=== PATIENT | male | born 1950 | race Caucasian/White ===

== ENCOUNTER 2016-12-21 13:00 | Inpatient (IN) | payer MEDICARE, BC ==
--- NOTE | ~2016-12-21 | IDS ---
Interim Discharge Summary [facility] [address] [place]. [address] NAME: JOSUE MRATINEZ : 54 STATUS : ADM IN PAT#: [id number] AGE: 66 ADM/REG DATE : 12/22/16 MR#: [id number] REPORT SERV DATE: 12/28/16 DICTATED BY: JAKOB JOY DATE: 12/28/16 REPORT STATUS : Draft TRANSCRIBED BY: MODL DATE: 12/28/16 ADMISSION DATE: 12/22/2016 DISCHARGE DATE: DIAGNOSES: 1. Systolic congestive heart failure, ejection fraction of 30%, status post AICD/fluid overload. 2. Encephalopathy. 3. Acute hypoxic hypercapnic respiratory failure. 4. Obstructive sleep apnea/obesity hypoventilation syndrome. 5. Type 2 diabetes. 6. Acute on chronic kidney disease. 7. Paroxysmal atrial fibrillation. CONSULTANTS: 1. Cardiology, Dr. Dash and Dr. Graham. 2. Nephrology, Dr. Hutson. 3. Attending Critical Care, Dr. Oleary. 4. Hospitalist, Dr. Adalberto Lopez and Dr. Josue Lanier. HOSPITAL COURSE: Please see H and P dictated by Dr. Adalberto Lopez. A 66-year-old male with past medical history of morbid obesity and cardiomyopathy with ejection fraction of 30%, status post AICD being followed by Dr. López and Dr. Rogers as an outpatient, also history of hypertension. Presented with orthopnea and shortness of breath and admitted to the Hospitalist Service, initially seen by Dr. Josue Lanier for volume overload and acute kidney injury. The patient at one point was found to have some bradycardia and also developed some acute hypoxic hypercapnic respiratory failure and was placed on BiPAP and also his Bumex drip was continued. The patient was transferred to ICU, had some encephalopathy secondary to hypercapnia. His AICD device was interrogated and found to be within normal limits. The patient was cared for by Critical Care as well as Cardiology and required dobutamine drip while in ICU. Also was seen by Nephrology for acute on chronic renal failure. It was discussed that his respiratory failure was most likely multifactorial secondary to his congestive heart failure as well as some underlying obesity hypoventilation syndrome/obstructive sleep apnea. The patient required a PICC line during that time. He was also continued on Coumadin and sotalol for paroxysmal atrial fibrillation. The patient was transferred out of the ICU. I attended to care for the patient the first time today on 12/28/2016. Currently, in no distress. He is alert and oriented. Has decreased shortness of breath, feeling a lot better. However, will consult Pulmonary to ascertain whether or not if the patient will require any nighttime BiPAP. The patient states that he does have a sleep study already set up as an outpatient, but he missed that appointment while being hospitalized in the hospital. He understands he needs to be rescheduled. We will await further recommendations from Pulmonary and also from Cardiology. The patient may require pulse dose diuresis. The patient will be followed by Dr. Anna Sandra who will attend to this patient's care starting on 12/29/2016. Interim Discharge Summary [address] [address] NAME: JOSUE MARTINEZ : 54 STATUS : ADM IN [facility]#: [id number] AGE: 66 ADM/REG DATE : 12/22/16 MR#: [id number] REPORT SERV DATE: 12/28/16 DICTATED BY: JAKOB JOY DATE: 12/28/16 REPORT STATUS : Draft TRANSCRIBED BY: MICHAEL DATE: 12/28/16 [facility]/MICHAEL Jakob Joy M.D. / [id number] CC: MD Daniel Stephenson M.D.
--- NOTE | ~2016-12-21 | DS ---
Discharge Summary [facility] [address] [place]. [address] NAME: JOSUE MARTINEZ : 54 STATUS : DIS IN PAT#: [id number] AGE: 66 ADM/REG DATE : 12/22/16 MR#: [id number] REPORT SERV DATE: 01/01/17 DICTATED BY: ANNA CRUZ DATE: 12/31/16 REPORT STATUS : Draft TRANSCRIBED BY: MODL DATE: 12/31/16 ADMISSION DATE: 12/22/2016 DISCHARGE DATE: 12/31/2016 DISCHARGE DIAGNOSES: 1. Acute on chronic congestive heart failure exacerbation with an ejection fraction of 30%. 2. Status post AICD. 3. Acute hypoxic hypercapnic respiratory failure, resolved. 4. Likely obstructive sleep apnea with obesity hypoventilation syndrome. 5. Obesity. 6. Acute on chronic kidney disease. 7. Diabetes type 2, insulin dependent. 8. Paroxysmal atrial fibrillation. CONSULTANTS ON THE CASE: 1. Cardiology Dr. Dash, Dr. Graham, and Dr. López. 2. Nephrology Dr. Hutson and Dr. Rico Wang. 3. Critical Care Dr. Oleayr. 4. Pulmonary Dr. Karley Rush. HOSPITAL COURSE: This is a very pleasant 66 years old gentleman that has a history of nonischemic cardiomyopathy and chronic systolic CHF, history of AICD, history of paroxysmal atrial fibrillation, obesity, likely obstructive sleep apnea, chronic kidney disease, hypertension, and diabetes admitted on 12/21/2016 with shortness of breath and CHF exacerbation as well as acute on chronic kidney disease. For further details, please see history and physical exam of Dr. John Glover. The patient has been followed by Dr. López and Dr. Rogers as an outpatient. He has been admitted with acute hypoxic hypercapnic respiratory failure, placed on a BiPAP, Bumex drip, and transferred initially to ICU since he developed some encephalopathy secondary to his hypercapnia. He had an interrogation of the AICD found to be normal. He has been seen in ICU by Cardiology as well as the Critical Care. He required some IV dobutamine drip as well as IV Bumex drip. His respiratory failure significantly improved. He has been continued on sotalol and Coumadin, transferred eventually out of the ICU, continued to be diuresed. His shortness of breath improved significantly. He has been followed by Dr. López on the floor as well as Dr. Wang and Dr. Karley Rush from Pulmonary. Eventually, the patient has been taken off the oxygen and did not require oxygen but obviously patient required outpatient sleep study. Most likely, he will need CPAP at night. His diuretic has been adjusted by the Pulmonology as well as Cardiology as well as by the Nephrology. He started to work with Physical Therapy, and recommendation for the patient was to go home with home health. On 12/31/2016, the patient has been ready for discharge. We will arrange an outpatient sleep study. We will arrange primary care provider followup appointment with Dr. Humphries in one week after discharge. Cardiology followup with Dr. López in one week after discharge. Nephrology followup with [facility] in one to two weeks after discharge. Pulmonary followup with Dr. Kraley Rush in four to six weeks after discharge. Followup at [facility] in one week after discharge. We will arrange home health and home PT. Discharge Summary [address] [address] NAME: JOSUE MARTINEZ : 54 STATUS : DIS IN PAT#: [id number] AGE: 66 ADM/REG DATE : 12/22/16 MR#: [id number] REPORT SERV DATE: 01/01/17 DICTATED BY: ANNA CRUZ DATE: 12/31/16 REPORT STATUS : Draft TRANSCRIBED BY: MICHAEL DATE: 12/31/16 MEDICATIONS AT DISCHARGE: Would include aspirin 81 mg p.o. daily, Bumex 1 mg with supper and 2 mg every morning, Celexa 10 mg p.o. daily, Colace 100 b.i.d. over the counter, Cymbalta 60 mg p.o. daily, Axid 150 at bedtime, Levemir 16 units subcutaneously twice a day, NovoLog sliding scale, Zaroxolyn 2.5 p.o. daily. His potassium has been discontinued per Nephrology recommendation. Also Lyrica 300 at bedtime, sotalol 40 twice a day, Jantoven 5 mg p.o. every morning. His ARB has been discontinued. Also, allopurinol 300 p.o. every morning, Pravachol 40 p.o. daily, Trulicity 0.75 subcu every seven days, and oxycodone 10/325 one tablet p.o. q.6 hours p.r.n. pain as well as albuterol MDI. The patient is going to be discharged home with home health and home physical therapy. This has been discussed extensively with the patient. All the questions have been answered in full. I have spent more than 30 minutes at discharging the patient Adrien Josue Mcgee, medication reconciliation, discharge summary, discharge instruction, and written prescriptions as well. Please fax a copy of history, physical exam, all the tests, procedure done during this hospitalization, consults, as well as discharge summaries to his primary care provider, Dr. Humphries as well as to his kick press setter Dr. López, registered nurse supervisor Dr. Karley Rush, and Dr. Wang, Nephrology. CF/MODL Anna Cruz M.D. / [id number] CC: Shirin Lutz M.D. C. Samuel Ledford, M.D. Pamela Sud, M.D. Claude Galphin, M.D.
--- NOTE | ~2016-12-21 | CN ---
Consultation Report [facility] [address] [place]. [address] NAME: JOSUE JURADO : 54 STATUS : ADM [place] PAT#: [id number] AGE: 66 ADM/REG DATE : 12/21/16 MR#: [id number] REPORT SERV DATE: 12/22/16 DICTATED BY: JOSUE CLEARY DATE: 12/21/16 REPORT STATUS : Draft TRANSCRIBED BY: MODL DATE: 12/21/16 CARDIOLOGY CONSULTATION DATE OF CONSULTATION: [facility] PHYSICIAN: Reji Lpóez M.D. REASON FOR CONSULTATION: Congestive heart failure, volume overload. HISTORY OF PRESENT ILLNESS: Mr. Jurado is a 66-year-old man with a history of nonischemic cardiomyopathy and chronic systolic congestive heart failure. He was just hospitalized here a month ago with congestive failure. He was discharged to home, and there is some question about whether some his medicines were changed, he is really not sure about them. He does report being compliant with volume restriction at home. He uses a salt substitute, although he brought it with him to the hospital, I wonder how much he is actually using. He reports having increased swelling involving the abdomen and legs with some increased shortness of breath. No chest pain, palpitations, lightheadedness, or syncope. He has no nausea or vomiting. No fevers or chills. REVIEW OF SYSTEMS: As per the history of present illness. Ten other systems are negative. PAST MEDICAL HISTORY: 1. Nonischemic cardiomyopathy. 2. Chronic systolic congestive heart failure. Echocardiogram 08/2016, with an EF of 35%. 3. History of ICD. 4. Sleep apnea. 5. Obesity. 6. COPD. 7. Chronic kidney disease. 8. Hypertension. 9. Diabetes. FAMILY HISTORY: Noncontributory. SOCIAL HISTORY: The patient is . No tobacco or alcohol is reported. ALLERGIES: NO KNOWN DRUG ALLERGIES. HOME MEDICATIONS: Allopurinol, aspirin 300 daily, Bumex 2 mg in the morning 1 in the evening p.o., citalopram 10 daily, Cymbalta 60 q.a.m., insulin as directed, Cozaar 25 daily, Zaroxolyn 2.5 p.r.n., Axid 150 q.h.s., potassium 20 daily, Pravachol 40 daily, Lyrica, Betapace 40 p.o. b.i.d. Jantoven as directed. Consultation Report [address] [address] NAME: JOSUE JURADO : 54 STATUS : ADM [place] PAT#: [id number] AGE: 66 ADM/REG DATE : 12/21/16 MR#: [id number] REPORT SERV DATE: 12/22/16 DICTATED BY: JOSUE CLEARY DATE: 12/21/16 REPORT STATUS : Draft TRANSCRIBED BY: MODL DATE: 12/21/16 PHYSICAL EXAMINATION: VITAL SIGNS: Heart rate 91, blood pressure 126/72. GENERAL: The patient is a pleasant obese white male, in no apparent distress. HEENT: Conjunctivae are anicteric, no xanthelasma, lips without cyanosis. NECK: Supple. Jugular venous pressures cannot be assessed. LUNGS: Decreased breath sounds in the bases. Possible rales. CARDIOVASCULAR: Regular rate and rhythm. Normal S1, S2. Very distant heart sounds. ABDOMEN: Soft, nontender, nondistended, with normal bowel sounds. No hepatomegaly. EXTREMITIES: +3 edema with chronic venous stasis changes. Pitting is noted. NEURO/PSYCH: Alert and oriented to person, place and time. No obvious neurologic deficits. Mood and affect normal. DATA: Creatinine is 1.56. GFR is 43. BNP is 503. Troponin negative. Chest x-ray with mild pulmonary edema. Minimal pleural fluid. IMPRESSION: 1. Acute on chronic systolic congestive heart failure. 2. Nonischemic cardiomyopathy. Left ventricular ejection fraction 35% by echo 08/2016. 3. Chronic obstructive pulmonary disease. 4. Chronic kidney disease. 5. History of ICD. 6. Atrial fibrillation, on sotalol and warfarin. 7. Chronic kidney disease. 8. Obesity. RECOMMENDATIONS: Mr. Jurado does come in with some moderate volume overload. He is in no extremis. His creatinine is up a little bit. I think aggressive diuresis to try to get him decongested and turn around will be the most important thing we can do for him, to try to get him back in the outpatient setting. Thank you for this consultation. Please contact me if you have any further questions. I will notify Dr. López of his admission. WO/MODL Josue Cleary M.D., Ph.D, F.A.C.C. / [id number] CC: Josue Lanier Jr, MD Consultation Report [address] [address] NAME: JOSUE JURADO : 54 STATUS : ADM [place] PAT#: [id number] AGE: 66 ADM/REG DATE : 12/21/16 MR#: [id number] REPORT SERV DATE: 12/22/16 DICTATED BY: JOSUE CLEARY DATE: 12/21/16 REPORT STATUS : Draft TRANSCRIBED BY: MICHAEL DATE: 12/21/16 Daniel Humphries M.D.
--- NOTE | ~2016-12-21 | CN ---
Consultation Report [facility] [address] [place]. [address] NAME: JOSUE JURADO : 54 STATUS : ADM IN PAT#: [id number] AGE: 66 ADM/REG DATE : 12/22/16 MR#: [id number] REPORT SERV DATE: 12/24/16 DICTATED BY: MANPREET RINALDI DATE: 12/24/16 REPORT STATUS : Draft TRANSCRIBED BY: MODL DATE: 12/24/16 NEPHROLOGY CONSULTATION. DATE OF CONSULTATION: 12/24/2016 REASON FOR CONSULT: Chronic kidney disease, acute kidney injury with volume overload. HISTORY OF PRESENT ILLNESS: Mr. Jurado is a 66-year-old white male who has a history of nonischemic cardiomyopathy. He was admitted to [facility] from 11/20 to 11/22 with volume overload. He has an AICD with an EF of 30%. He was readmitted on 12/21 with a 13- pound weight gain and is now in the CCU on BiPAP. Baseline creatinine has been 1.1 to 1.4 since 02/2014. Since admission, his creatinine has gone from 1.6 to 3.1. Over last 24 hours, he has only had 850 mL of urine output despite being started on a Bumex drip. PAST MEDICAL HISTORY: 1. Chronic kidney disease, baseline creatinine 1.1 to 1.4. 2. Nonischemic cardiomyopathy with AICD, EF 30% with RVSP 44 mmHg. 3. Insulin-dependent diabetes mellitus without proteinuria. 4. Paroxysmal atrial fibrillation, on chronic Coumadin. 5. Obstructive sleep apnea. 6. Hyperlipidemia, on statin. 7. Chronic pain. 8. Possible dementia. MEDICATIONS: Include Bumex drip at 1 mg/hour, allopurinol 300 mg daily, aspirin, Celexa, Cymbalta, Pepcid, Cozaar 25 mg daily, Zaroxolyn 5 mg daily, Percocet q.6, potassium 40 mg a.m. and 20 mg p.m., Pravachol 40 mg at bedtime, Lyrica 300 mg at bedtime, sotalol 40 mg b.i.d., Coumadin per pharmacy, Levemir 16 units b.i.d. FAMILY HISTORY: Cannot be obtained in the patient's current condition on BiPAP. SOCIAL HISTORY: Cannot be obtained in the patient's current condition on BiPAP. REVIEW OF SYSTEMS: Cannot be obtained in the patient's current condition on BiPAP. PHYSICAL EXAMINATION: VITAL SIGNS: Temperature 97.8, pulse 70, respirations 10, blood pressure 114/68, 100% saturation on 30% BiPAP. GENERAL: He is an ill-appearing white male, who is awake, alert, requiring BiPAP, does have mild dyspnea. HEENT: Sclerae without icterus. Conjunctivae not injected. Oropharynx not examined. JVD is 12-14 cm. HJR is positive. LUNGS: He has diffuse bilateral rhonchi and crackles with decreased breath sounds at the Consultation Report [address] [address] NAME: JOSUE JURADO : 54 STATUS : ADM IN [facility]#: [id number] AGE: 66 ADM/REG DATE : 12/22/16 MR#: [id number] REPORT SERV DATE: 12/24/16 DICTATED BY: MANPREET RINALDI DATE: 12/24/16 REPORT STATUS : Draft TRANSCRIBED BY: MICHAEL DATE: 12/24/16 bases. HEART: Rhythm is paced and regular, 2/6 murmur. No rub. ABDOMEN: Obese, soft, distended with mild ascites. Nontender to palpation. Bowel sounds present throughout. EXTREMITIES: He has 3 to 4+ pitting bilateral lower extremity edema to the hips. SKIN: Without rash. NEURO: Grossly nonfocal. Mood and affect are anxious. He has clear yellow urine in the Burgos catheter. : Deferred. MUSCULOSKELETAL: Shows no active tenosynovitis or gout. LABORATORY DATA: Sodium 137, potassium 5.7, bicarb 31, BUN 82, creatinine 3.1. ALT 158, AST 97, magnesium 2.8, calcium 8.7, phosphorus 5.4, albumin 3.5, GFR 20 mL/minute. BNP 630. A1c 8%. White count 8100 without eosinophilia. INR 2.1. Hemoglobin 11.7, platelets 168,000. UA in 11/2016 showed no proteinuria. Chest x-ray shows bilateral edema and effusions. Ultrasound showed no lower extremity DVT. CT on admission without contrast showed pleural effusions, ascites, body wall edema, but no hydronephrosis. ASSESSMENT AND PLAN: Mr. Jurado has chronic kidney disease with baseline creatinine 1.1 to 1.4, who has now developed nonoliguric acute kidney injury in the setting of volume overload, hyperkalemia, elevated LFTs, hypotension. He has nonischemic cardiomyopathy with AICD in place and EF 30%. Likely, he has developed decompensated cardiorenal syndrome and may have a component of ATN from renal hypoperfusion due to low blood pressure and systolic congestive heart failure. Hold ARB and potassium supplement. We will continue Bumex drip, but increase the dose and add a dose of Diuril IV today. Need to discuss with family regarding expectations. If he fails medical management, may need to consider a trial of CRRT for volume removal. We will follow closely with you. Appreciate consult. Watch labs. Provide supportive care. Hold statin with elevated LFTs. NC/MODL Manpreet Rinaldi M.D. / [id number] CC: Consultation Report [address] [place]. [address] NAME: JOSUE JURADO : 54 STATUS : ADM IN PAT#: [id number] AGE: 66 ADM/REG DATE : 12/22/16 MR#: [id number] REPORT SERV DATE: 12/24/16 DICTATED BY: MANPREET RINALDI DATE: 12/24/16 REPORT STATUS : Draft TRANSCRIBED BY: MODL DATE: 12/24/16 Josue Lanier Jr, MD
--- NOTE | ~2016-12-21 | HP ---
History And Physical [address] [place]. [address] NAME: JOSUE MARTINEZ : 54 STATUS : ADM [place] PAT#: [id number] AGE: 66 ADM/REG DATE : 12/21/16 MR#: [id number] REPORT SERV DATE: 12/21/16 DICTATED BY: NICKY FAIR DATE: 12/21/16 REPORT STATUS : Draft TRANSCRIBED BY: MODL DATE: 12/21/16 DATE OF ADMISSION: 12/21/2016 Primary care doctor appears to be Dr. Aiken. He sees Dr. López for his cardiology needs. CHIEF COMPLAINT: Shortness of breath. Orthopnea. HISTORY OF PRESENT ILLNESS: This is a 66-year-old morbidly obese male, known history of nonischemic cardiomyopathy, LVEF 30%, AICD placement done by Dr. Rogers, sees Dr. López for his cardiology needs, history of hypertension, depression, chronic pain, left lower extremity DVT, taken off Coumadin in the past, history of MELINDA to OHBS, not on CPAP. He did have a recommended polysomnography test planned last admission and actually was discharged on 11/22/2016. Noted a recent history of Alzheimer's. Noted history of left knee total joint surgery, abdominal abscess drainage in the past and diabetes, insulin dependent with reduced requirements given weight loss. The patient was discharged in mid November for likely volume overload, acute decompensated heart failure. Discharged on Bumex 2 p.o. b.i.d. as well as metolazone p.r.n.; carvedilol; and losartan. The patient states he has had about 13 pounds weight gain in the last 10 days. I did call Dr. López's office who instructed him to come to the emergency department. BNP is 503. Near upon discharge last admission, he was around 300 BNP. Chest x-ray with bilateral alveolar infiltration; however, the patient's pulse ox is okay around 97% on room air. The patient is sitting up fully upright. Endorses positive orthopnea. No PND. Increased swelling in his lower extremities. No fevers. Positive chills. Positive nausea. Positive nonbilious emesis recently. No diarrhea. Only some mild left-sided pleuritic chest pain is reproducible with musculoskeletal palpation though. Positive productive cough the last few days. Positive wheezing. No personal history of smoking with significant secondhand smoke exposure. REVIEW OF SYSTEMS: Done, see HPI. Otherwise, negative. PAST MEDICAL HISTORY: See above. PAST SURGICAL HISTORY: See above. ALLERGIES: APPARENTLY NO KNOWN DRUG ALLERGIES. HOME MEDICATIONS: See MAR. We will continue what is relevant. FAMILY HISTORY: Hypertension in at least one parent. SOCIAL HISTORY: No alcohol, no drug use. . Apparently lives with the in poor health. He is a [employer] as a [facility] [employer]. He did have [employer] [place] History And Physical [address] [address] NAME: JOSUE MARTINEZ : 54 STATUS : ADM [place] PAT#: [id number] AGE: 66 ADM/REG DATE : 12/21/16 MR#: [id number] REPORT SERV DATE: 12/21/16 DICTATED BY: NICKY FAIR DATE: 12/21/16 REPORT STATUS : Draft TRANSCRIBED BY: MODMariluz DATE: 12/21/16 exposure. Lives in [facility]. No current smoking use although significant secondhand smoking exposure in the past. OBJECTIVE: VITAL SIGNS: They currently are 126/72, 97.8 temperature, 91 pulse, 16 respirations, only 97% on room air. GENERAL: He is sitting totally upright. No acute distress. HEENT: PERRLA. No scleral icterus. CARDIOVASCULAR: Regular rate and rhythm. No murmur auscultated. RESPIRATORY: Bibasilar rales. Some mild actual expiratory wheezing bilaterally as well for mid lung arana. ABDOMEN: Obese nontender. Nondistended. Positive bowel sounds. EXTREMITIES: A 1 to 2+ pitting edema bilaterally. NEUROLOGIC: A and O x4/4. GCS of 15. LABORATORY DATA: White count 8.4, hemoglobin 12.2, and 186,000 platelets. Troponin negative. 4.3 potassium, 34 bicarb, 1.65 creatinine, 51 BUN, 138 sodium, 193 sugar, BNP 503; near upon discharge last admission, he was about 300 BNP. Chest x-ray, see above. Also has an EKG that has a paced rhythm, appears to be V-paced. ASSESSMENT AND PLAN: 1. Volume overload. 2. Supratherapeutic INR. Interestingly was not discharged from last discharge summary on Coumadin but yet is taking home Coumadin. INR is 5.7, suspected history of left lower extremity DVT. 3. Likely acute on chronic systolic-diastolic heart failure, LVEF near 30%, nonischemic in origin. 4. Acute kidney injury, likely on 81. We will go ahead and admit this patient under observation. He is fairly decent on his vitals, it is 97% on room air, sitting totally upright. Does have a doubling in his BNP with certain bilateral alveolar infiltration. As a result, the patient has productive cough with significant secondhand smoking exposure may have clinical COPD and we will place on Levaquin 3/3 GOLD criteria, Solu- Medrol. Placed on Bumex 2 IV t.i.d. as the patient gets 2 p.o. b.i.d. at home. We will also go ahead and give him 5 of vitamin K, ultrasound his lower extremities for any persistence of clot. We will also ask for Dr. López to evaluate the patient as he was instructed to come to the emergency department from the export freight specialist's office. We will also get a CT abdomen and pelvis regarding his HORACIO to rule out any nephrolithiasis. Likely Dr. Lanier will follow this patient in the CVU as the patient is going for observation. Will Physical therapy evaluate the patient's needs significant needs. 5. See rest of my orders. All questions were answered. It took well over 60 minutes to do. Reference [employer] and [employer]. WST/MODL Nicky Wise History And Physical [address] [address] NAME: JOSUE MARTINEZ : 54 STATUS : ADM [place] PAT#: [id number] AGE: 66 ADM/REG DATE : 12/21/16 MR#: [id number] REPORT SERV DATE: 12/21/16 DICTATED BY: NICKY FAIR DATE: 12/21/16 REPORT STATUS : Draft TRANSCRIBED BY: MODL DATE: 12/21/16 DO John / [id number] CC: Josue Lanier Jr, MD Raphael Lanade, M.D.
[2016-12-21 12:44] LABS: BASOPHILS 0.4 %; BASOPHILS ABSOLUTE 0.03 10/3/uL (0.0-0.16); EOSINOPHILS 2.8 %; EOSINOPHILS ABSOLUTE 0.23 10/3/uL (0.0-0.53); HEMATOCRIT 38.5 % (40.0-51.0); HEMOGLOBIN 12.2 g/dL (13.6-17.8); IMMATURE GRANULOCYTES 0.6 %; IMMATURE GRANULOCYTES ABSOLUTE 0.05 10/3/uL (0.0-0.11); LYMPHOCYTES 13.4 %; LYMPHOCYTES ABSOLUTE 1.12 10/3/uL (0.67-4.30); MANUAL DIFF NO %; MEAN CORPUS HGB CONC 31.7 g/dL (32.0-36.0); MEAN CORPUSCULAR HEMOGLOB 25.5 pg (26.0-34.0); MEAN CORPUSCULAR VOLUME 80.4 fL (80-100); MEAN PLATELET VOLUME 11.2 fL (9.2-13.0); MONOCYTES 12.8 %; MONOCYTES ABSOLUTE 1.07 10/3/uL (0.21-1.20); NEUTROPHILS ABSOLUTE 5.85 10/3/uL (2.02-8.40); PLATELET COUNT 186 10/3/uL (150-400); RBC DISTRIBUTION WIDTH 17.1 % (12.0-16.0); RED CELL COUNT 4.79 10/6/uL (4.7-6.1); WHITE BLOOD CELLS 8.4 10/3/uL (4.5-10.5)
[2016-12-21 12:51] LABS: PARTIAL THROMBO TIME 51.5 SEC (22.5-37.2)
[2016-12-21 12:52] LABS: INTERNATIONAL NORMAL RATI 5.7 UNITS (-); PROTIME (NOT ORD) 50.7 SEC (12.0-14.5)
[2016-12-21 13:00] LABS: CALCIUM, SERUM 8.9 MG/DL (8.5-10.4); CHLORIDE, SERUM 95 MMOL/L (96-112); CO2 (CARBON DIOXIDE) 34 MMOL/L (24-34); GLUCOSE, SERUM 153 MG/DL (60-99); POTASSIUM, SERUM 4.3 MMOL/L (3.5-5.3); SODIUM, SERUM 138 MMOL/L (135-148); TROPONIN I 0.04 NG/ML (<0.05)
[~2016-12-21 13:00] MED LIST: AMB10 PO; AMB5 PO; AMBIEN; ASAB PO; AXID150 MG PO; B121000P IM; BIST PO; BLACK CHERRY PO; BUM1 PO; BUM2 PO; C5 PO; CALC/MAG/ZINC PO; CALCIUM/MAG/ZINC PO; CELEXA10 PO; CICLOPIROX 8% EX; CINNAMON; CINNAMON PO; COLON HEALTH; COQ-1010 MG OR; COREG3 PO; COREG6 PO; COREGCR10 PO; CORTISPORIN0.5 % TOP; COZ25; CYANO1000T PO; CYMBALTA60 PO; DEMA100 PO; DEMA20 PO; DIGITEK0.125 MG PO; DIL4TAB PO; FIBERCON PO; FISH-EPA1000 MG PO; FLOMAX4 PO; FOLTANX PO; GLUCOPHAGE1000 MG PO; GLUCOSAMIN PO; GLUCOSAMINE PO; HALF81; HALF81 PO; HORMONE INJECTION IM; INVOKANA100 MG PO; JANTOVEN7.5 MG PO; KDUR20 PO; KLOR-CON 1010 MEQ PO; KLOR-CON M2020 MEQ PO; L40 PO; L80 PO; LAN125 PO; LANTUS SC; LANTUSCART SC; LEVEMIR SC; LIMBREL500 MG PO; LIPITOR40 PO; LORCET PLUS1 TAB PO; LYRICA200 MG PO; LYRICA300 MG PO; MAGNESIUM PO; MAGONATE PO; MAGOX4 PO; METANX PO; MIRALAXPKT PO; MULTIPLE VIT PO; MULTIVIT/MIN PO; NEUR600 PO; NEURONTIN; NIZATIDINE 150 MG PO; NORV10 PO; NOVOLOG SC; OMNICEF300 PO; P20 PO; PCET PO; PERCOCET1 TA4 PO; PLAVIX PO; POTASSIUM; PRAVACHOL40 MG; PRAVACHOL40 MG PO; PRAVASTATIN; PRILO PO; PRILOSEC; PRIN5 PO; PROAMAT5 PO; SPIRO25 PO; SYMBICORT 160/41 INH INH; TRULICITY SC; TRULICITY0.75 MG/0. SQ; VENTOLIN HFA INH; VICTOZA; VICTOZA SQ; VITAMIN B-121000 MC1 SL; VITAMIN D1000 UNI1 PO; VITAMIN D31000 UNIT PO; XOPENEX HFA INH; Z10 PO; Z300 PO; Z5 PO; ZAROX2.5B PO; ZESTRIL2.5 MG PO; [UNRECOGNIZED DRUG - OTHER]; [UNRECOGNIZED DRUG - OTHER] PO; [UNRECOGNIZED DRUG - OTHER] PO
[2016-12-21 13:04] LABS: BUN (BLOOD UREA NITROGEN) 51 MG/DL (6-23); CREATININE 1.65 MG/DL (0.70-1.30); GFR AFRICAN AMERICAN 50 ML/MIN (>=60); GFR NON AFRICAN AMERICAN 43 ML/MIN (>=60)
[2016-12-21 13:05] LABS: CHEST PAIN PROFILE TAT 0 Hrs 33 Mins
[2016-12-21] MEDS ORDERED: BETAPACE80 PO (13:17)
[2016-12-21] MEDS ORDERED: COZ25 PO (13:18)
[2016-12-21] MEDS ORDERED: C5 PO (13:18)
[2016-12-21] MEDS ORDERED: LYRICA100 MG PO (13:19)
[2016-12-21] MEDS ORDERED: BUM2 PO (13:20)
[2016-12-21] MEDS ORDERED: BUM1 PO (13:20)
[2016-12-21] MEDS ORDERED: LYRICA300 MG PO (13:20)
[2016-12-21] MEDS ORDERED: CELEXA10 PO (13:20)
[2016-12-21] MEDS ORDERED: CYMBALTA60 PO (13:21)
[2016-12-21] MEDS ORDERED: Z300 PO (13:21)
[2016-12-21] MEDS ORDERED: AXID150 MG PO (13:22)
[2016-12-21] MEDS ORDERED: ZAROX2.5B PO (13:22)
[2016-12-21] MEDS ORDERED: KLOR-CON M2020 MEQ PO ×2 (13:23)
[2016-12-21] MEDS ORDERED: PRAVACHOL40 MG PO (13:23)
[2016-12-21] MEDS ORDERED: TRULICITY0.75 MG/0. SQ (13:24)
[2016-12-21] MEDS ORDERED: ASAB PO (13:24)
[2016-12-21] MEDS ORDERED: NOVOLOG SC (13:25)
[2016-12-21] MEDS ORDERED: LEVEMIR SC (13:25)
[2016-12-21] MEDS ORDERED: JANTOVEN3 MG PO (13:33)
[2016-12-22 05:37] LABS: BASOPHILS 0.2 %; BASOPHILS ABSOLUTE 0.01 10/3/uL (0.0-0.16); EOSINOPHILS 0 %; HEMATOCRIT 36.4 % (40.0-51.0); HEMOGLOBIN 11.7 g/dL (13.6-17.8); IMMATURE GRANULOCYTES 0.4 %; IMMATURE GRANULOCYTES ABSOLUTE 0.02 10/3/uL (0.0-0.11); LYMPHOCYTES 10.9 %; LYMPHOCYTES ABSOLUTE 0.54 10/3/uL (0.67-4.30); MEAN CORPUS HGB CONC 32.1 g/dL (32.0-36.0); MEAN CORPUSCULAR HEMOGLOB 25.7 pg (26.0-34.0); MEAN CORPUSCULAR VOLUME 79.8 fL (80-100); MEAN PLATELET VOLUME 11.4 fL (9.2-13.0); MONOCYTES 1.2 %; MONOCYTES ABSOLUTE 0.06 10/3/uL (0.21-1.20); NEUTROPHILS 87.3 %; NEUTROPHILS ABSOLUTE 4.33 10/3/uL (2.02-8.40); PLATELET COUNT 175 10/3/uL (150-400); RBC DISTRIBUTION WIDTH 17.2 % (12.0-16.0); RED CELL COUNT 4.56 10/6/uL (4.7-6.1)
[2016-12-22 05:43] LABS: MANUAL DIFF NO %
[2016-12-22 06:12] LABS: A/G RATIO 0.9 (0.7-1.9); ALBUMIN 3.2 G/DL (3.5-5.0); BUN (BLOOD UREA NITROGEN) 52 MG/DL (6-23); CALCIUM, SERUM 8.7 MG/DL (8.5-10.4); CHLORIDE, SERUM 93 MMOL/L (96-112); CO2 (CARBON DIOXIDE) 33 MMOL/L (24-34); CREATININE 1.69 MG/DL (0.70-1.30); GFR AFRICAN AMERICAN 49 ML/MIN (>=60); GFR NON AFRICAN AMERICAN 42 ML/MIN (>=60); GLOBULIN 3.6 G/DL (2.5-4.1); SGOT(AST) 175 U/L (5-40); SGPT(ALT) 203 U/L (5-65); SODIUM, SERUM 138 MMOL/L (135-148); TOTAL BILIRUBIN 0.8 MG/DL (0-1.2); TOTAL PROTEIN 6.8 G/DL (6.0-8.5); TROPONIN I 0.03 NG/ML (<0.05)
[2016-12-22 06:14] LABS: ALKALINE PHOSPHATASE 136 U/L (45-117); GLUCOSE, SERUM 232 MG/DL (60-99); PHOSPHORUS, SERUM 3.6 MG/DL (2.5-4.5)
[2016-12-22 06:56] LABS: B NATRIURETIC PEPTIDE (BNP) 627.3 PG/ML (< 100.0)
[2016-12-22 07:00] LABS: PROCALCITONIN 0.05 ng/mL (<0.5)
[2016-12-22] MEDS ORDERED: PERCOCET 10/3251 TAB PO (10:01)
[2016-12-23 05:20] LABS: BASOPHILS 0 %; EOSINOPHILS 0 %; HEMATOCRIT 36.9 % (40.0-51.0); HEMOGLOBIN 11.7 g/dL (13.6-17.8); IMMATURE GRANULOCYTES 0.3 %; IMMATURE GRANULOCYTES ABSOLUTE 0.02 10/3/uL (0.0-0.11); INTERNATIONAL NORMAL RATI 2.2 UNITS (-); LYMPHOCYTES 8.7 %; LYMPHOCYTES ABSOLUTE 0.61 10/3/uL (0.67-4.30); MEAN CORPUS HGB CONC 31.7 g/dL (32.0-36.0); MEAN CORPUSCULAR HEMOGLOB 25.5 pg (26.0-34.0); MEAN CORPUSCULAR VOLUME 80.4 fL (80-100); MEAN PLATELET VOLUME 11.2 fL (9.2-13.0); MONOCYTES 8.5 %; NEUTROPHILS 82.5 %; PLATELET COUNT 193 10/3/uL (150-400); RBC DISTRIBUTION WIDTH 17.4 % (12.0-16.0); RED CELL COUNT 4.59 10/6/uL (4.7-6.1)
[2016-12-23 05:22] LABS: MANUAL DIFF NO %; PROTIME (NOT ORD) 23.9 SEC (12.0-14.5)
[2016-12-23 05:28] LABS: CALCIUM, SERUM 8.8 MG/DL (8.5-10.4); CHLORIDE, SERUM 96 MMOL/L (96-112); CO2 (CARBON DIOXIDE) 31 MMOL/L (24-34); CREATININE 2.12 MG/DL (0.70-1.30); GFR AFRICAN AMERICAN 37 ML/MIN (>=60); GFR NON AFRICAN AMERICAN 32 ML/MIN (>=60); PHOSPHORUS, SERUM 4.2 MG/DL (2.5-4.5); SODIUM, SERUM 136 MMOL/L (135-148)
[2016-12-23 05:33] LABS: BUN (BLOOD UREA NITROGEN) 65 MG/DL (6-23); GLUCOSE, SERUM 177 MG/DL (60-99); POTASSIUM, SERUM 5.5 MMOL/L (3.5-5.3)
[2016-12-23 14:07] LABS: ALLENS TEST Pos; BE (BASE EXCESS) 2.9 MEQ/L (0 +/- 2.5); CARBOXYHEMOGLOBIN 1.8 % (0-3); HCO3 (ACTUAL BICARBONATE) 31.1 MEQ/L (23-27); HEMOBLOGIN CONTENT 12.8 G/DL (14-18); INSTRUMENT SERIAL # 8087; METHEMOGLOBIN 0.3 % (0-3); O2 CONTENT 14.5 VOL% (18-24); PCO2 (CO2 TENSION) 65 MMHG (35-45); PO2 (O2 TENSION) 52 MMHG (79-93); SAMPLE Arterial
[2016-12-23 18:06] LABS: BE (BASE EXCESS) 4.8 MEQ/L (0 +/- 2.5); BIPAP 15/5 cm.H2O; CARBOXYHEMOGLOBIN 0.6 % (0-3); HCO3 (ACTUAL BICARBONATE) 31.4 MEQ/L (23-27); INSTRUMENT SERIAL # 35151; METHEMOGLOBIN 0.5 % (0-3); O2 CONTENT 17.7 VOL% (18-24); OPERATOR ID 35785; PCO2 (CO2 TENSION) 55 MMHG (35-45); PO2 (O2 TENSION) 99 MMHG (79-93); SAMPLE Arterial; pH 7.37 (7.37-7.43)
[2016-12-23 18:07] LABS: ALLENS TEST Pos
[2016-12-23 19:47] LABS: BASOPHILS 0 %; EOSINOPHILS 0 %; HEMATOCRIT 40.2 % (40.0-51.0); HEMOGLOBIN 12.3 g/dL (13.6-17.8); IMMATURE GRANULOCYTES 0.1 %; IMMATURE GRANULOCYTES ABSOLUTE 0.01 10/3/uL (0.0-0.11); LYMPHOCYTES 17.9 %; MEAN CORPUS HGB CONC 30.6 g/dL (32.0-36.0); MEAN CORPUSCULAR VOLUME 81.7 fL (80-100); MEAN PLATELET VOLUME 11.1 fL (9.2-13.0); MONOCYTES 2.4 %; NEUTROPHILS 79.6 %; NEUTROPHILS ABSOLUTE 6.69 10/3/uL (2.02-8.40); NUCLEATED RED BLOOD CELLS 0.7 /100WBC (0-0); PLATELET COUNT 200 10/3/uL (150-400); RBC DISTRIBUTION WIDTH 17.7 % (12.0-16.0); RED CELL COUNT 4.92 10/6/uL (4.7-6.1); WHITE BLOOD CELLS 8.4 10/3/uL (4.5-10.5)
[2016-12-23 19:48] LABS: MANUAL DIFF NO %
[2016-12-23 19:55] LABS: INTERNATIONAL NORMAL RATI 2.1 UNITS (-); PARTIAL THROMBO TIME 37.4 SEC (22.5-37.2); PROTIME (NOT ORD) 23.7 SEC (12.0-14.5)
[2016-12-23 19:59] LABS: A/G RATIO 0.9 (0.7-1.9); ALBUMIN 3.5 G/DL (3.5-5.0); CALCIUM, SERUM 8.7 MG/DL (8.5-10.4); CHLORIDE, SERUM 96 MMOL/L (96-112); CO2 (CARBON DIOXIDE) 32 MMOL/L (24-34); GLOBULIN 3.8 G/DL (2.5-4.1); POTASSIUM, SERUM 6.1 MMOL/L (3.5-5.3); SGOT(AST) 97 U/L (5-40); SGPT(ALT) 158 U/L (5-65); SODIUM, SERUM 135 MMOL/L (135-148); TOTAL BILIRUBIN 0.9 MG/DL (0-1.2); TOTAL PROTEIN 7.3 G/DL (6.0-8.5); TROPONIN I 0.04 NG/ML (<0.05)
[2016-12-23 20:00] LABS: ALKALINE PHOSPHATASE 120 U/L (45-117); BUN (BLOOD UREA NITROGEN) 74 MG/DL (6-23); CK-MB 1.5 NG/ML; CPK 37 U/L (0-200); CREATININE 2.91 MG/DL (0.70-1.30); GFR AFRICAN AMERICAN 25 ML/MIN (>=60); GFR NON AFRICAN AMERICAN 22 ML/MIN (>=60); GLUCOSE, SERUM 125 MG/DL (60-99); PHOSPHORUS, SERUM 5.6 MG/DL (2.5-4.5)
[2016-12-23 21:47] LABS: BIPAP 18/5 cm.H2O; CARBOXYHEMOGLOBIN 0.5 % (0-3); HEMOBLOGIN CONTENT 12.9 G/DL (14-18); INSTRUMENT SERIAL # 35151; METHEMOGLOBIN 0.6 % (0-3); O2 CONTENT 18.4 VOL% (18-24); PCO2 (CO2 TENSION) 57 MMHG (35-45); PO2 (O2 TENSION) 244 MMHG (79-93); SAMPLE Arterial; pH 7.35 (7.37-7.43)
[2016-12-23 21:48] LABS: ALLENS TEST Pos
[2016-12-24 05:22] LABS: INTERNATIONAL NORMAL RATI 2.1 UNITS (-); PROTIME (NOT ORD) 23.6 SEC (12.0-14.5)
[2016-12-24 07:16] LABS: BASOPHILS 0 %; EOSINOPHILS 0.1 %; EOSINOPHILS ABSOLUTE 0.01 10/3/uL (0.0-0.53); HEMATOCRIT 37.9 % (40.0-51.0); HEMOGLOBIN 11.7 g/dL (13.6-17.8); IMMATURE GRANULOCYTES 0.4 %; IMMATURE GRANULOCYTES ABSOLUTE 0.03 10/3/uL (0.0-0.11); LYMPHOCYTES 18.8 %; LYMPHOCYTES ABSOLUTE 1.53 10/3/uL (0.67-4.30); MEAN CORPUS HGB CONC 30.9 g/dL (32.0-36.0); MEAN CORPUSCULAR HEMOGLOB 24.8 pg (26.0-34.0); MEAN CORPUSCULAR VOLUME 80.3 fL (80-100); MEAN PLATELET VOLUME 10.9 fL (9.2-13.0); MONOCYTES ABSOLUTE 0.49 10/3/uL (0.21-1.20); NEUTROPHILS 74.7 %; NEUTROPHILS ABSOLUTE 6.08 10/3/uL (2.02-8.40); PLATELET COUNT 168 10/3/uL (150-400); RBC DISTRIBUTION WIDTH 17.6 % (12.0-16.0); RED CELL COUNT 4.72 10/6/uL (4.7-6.1); WHITE BLOOD CELLS 8.1 10/3/uL (4.5-10.5)
[2016-12-24 07:18] LABS: MANUAL DIFF NO %
[2016-12-24 07:32] LABS: CHLORIDE, SERUM 96 MMOL/L (96-112); POTASSIUM, SERUM 5.7 MMOL/L (3.5-5.3); SODIUM, SERUM 137 MMOL/L (135-148)
[2016-12-24 07:51] LABS: CALCIUM, SERUM 8.7 MG/DL (8.5-10.4); CO2 (CARBON DIOXIDE) 31 MMOL/L (24-34); CREATININE 3.12 MG/DL (0.70-1.30); GFR AFRICAN AMERICAN 23 ML/MIN (>=60); GFR NON AFRICAN AMERICAN 20 ML/MIN (>=60); GLUCOSE, SERUM 115 MG/DL (60-99); PHOSPHORUS, SERUM 5.4 MG/DL (2.5-4.5)
[2016-12-24 07:52] LABS: BUN (BLOOD UREA NITROGEN) 82 MG/DL (6-23)
[2016-12-24 09:11] LABS: TOTAL BILIRUBIN 0.7 MG/DL (0-1.2)
[2016-12-24 09:22] LABS: ALBUMIN 3.2 G/DL (3.5-5.0); ALKALINE PHOSPHATASE 110 U/L (45-117); DIRECT BILIRUBIN 0.4 MG/DL (0.0-0.4); INDIRECT BILIRUBIN(NOT ORDER) 0.3 MG/DL (0.1-0.9); SGOT(AST) 100 U/L (5-40); SGPT(ALT) 145 U/L (5-65); TOTAL PROTEIN 6.6 G/DL (6.0-8.5)
[2016-12-24 16:21] LABS: BUN (BLOOD UREA NITROGEN) 83 MG/DL (6-23); CALCIUM, SERUM 9.1 MG/DL (8.5-10.4); CHLORIDE, SERUM 97 MMOL/L (96-112); CO2 (CARBON DIOXIDE) 35 MMOL/L (24-34); CREATININE 2.94 MG/DL (0.70-1.30); GFR AFRICAN AMERICAN 25 ML/MIN (>=60); GFR NON AFRICAN AMERICAN 21 ML/MIN (>=60); GLUCOSE, SERUM 102 MG/DL (60-99); POTASSIUM, SERUM 4.7 MMOL/L (3.5-5.3); SODIUM, SERUM 139 MMOL/L (135-148)
[2016-12-24 19:09] LABS: INTERNATIONAL NORMAL RATI 2.3 UNITS (-); PROTIME (NOT ORD) 25.1 SEC (12.0-14.5)
[2016-12-25 07:53] LABS: BASOPHILS 0 %; EOSINOPHILS 2.4 %; EOSINOPHILS ABSOLUTE 0.17 10/3/uL (0.0-0.53); HEMATOCRIT 36.8 % (40.0-51.0); HEMOGLOBIN 11.9 g/dL (13.6-17.8); IMMATURE GRANULOCYTES 0.1 %; IMMATURE GRANULOCYTES ABSOLUTE 0.01 10/3/uL (0.0-0.11); LYMPHOCYTES 23.1 %; LYMPHOCYTES ABSOLUTE 1.65 10/3/uL (0.67-4.30); MEAN CORPUS HGB CONC 32.3 g/dL (32.0-36.0); MEAN CORPUSCULAR HEMOGLOB 25.8 pg (26.0-34.0); MEAN CORPUSCULAR VOLUME 79.7 fL (80-100); MONOCYTES 5.8 %; MONOCYTES ABSOLUTE 0.41 10/3/uL (0.21-1.20); NEUTROPHILS 68.6 %; NEUTROPHILS ABSOLUTE 4.89 10/3/uL (2.02-8.40); PLATELET COUNT 145 10/3/uL (150-400); RBC DISTRIBUTION WIDTH 17.3 % (12.0-16.0); RED CELL COUNT 4.62 10/6/uL (4.7-6.1); WHITE BLOOD CELLS 7.1 10/3/uL (4.5-10.5)
[2016-12-25 07:55] LABS: MANUAL DIFF NO %
[2016-12-25 07:57] LABS: INTERNATIONAL NORMAL RATI 2.6 UNITS (-); PROTIME (NOT ORD) 27.8 SEC (12.0-14.5)
[2016-12-25 08:00] LABS: BUN (BLOOD UREA NITROGEN) 80 MG/DL (6-23); CALCIUM, SERUM 8.7 MG/DL (8.5-10.4); CHLORIDE, SERUM 92 MMOL/L (96-112); CO2 (CARBON DIOXIDE) 36 MMOL/L (24-34); CREATININE 2.57 MG/DL (0.70-1.30); GFR AFRICAN AMERICAN 29 ML/MIN (>=60); GFR NON AFRICAN AMERICAN 25 ML/MIN (>=60); GLUCOSE, SERUM 85 MG/DL (60-99); PHOSPHORUS, SERUM 4.7 MG/DL (2.5-4.5); SODIUM, SERUM 140 MMOL/L (135-148)
[2016-12-25 08:01] LABS: POTASSIUM, SERUM 3.7 MMOL/L (3.5-5.3)
[2016-12-25 08:10] LABS: ALLENS TEST Pos; BE (BASE EXCESS) 12.4 MEQ/L (0 +/- 2.5); CARBOXYHEMOGLOBIN 0.8 % (0-3); DEVICE NC; HCO3 (ACTUAL BICARBONATE) 38.3 MEQ/L (23-27); INSTRUMENT SERIAL # 35151; METHEMOGLOBIN 0.6 % (0-3); O2 CONTENT 17.2 VOL% (18-24); OPERATOR ID 35188; PCO2 (CO2 TENSION) 55 MMHG (35-45); PO2 (O2 TENSION) 77 MMHG (79-93); SAMPLE Arterial; pH 7.46 (7.37-7.43)
[2016-12-26 05:22] LABS: BASOPHILS 0.2 %; BASOPHILS ABSOLUTE 0.01 10/3/uL (0.0-0.16); EOSINOPHILS 3.5 %; EOSINOPHILS ABSOLUTE 0.23 10/3/uL (0.0-0.53); HEMATOCRIT 36.5 % (40.0-51.0); HEMOGLOBIN 11.5 g/dL (13.6-17.8); IMMATURE GRANULOCYTES 0.2 %; IMMATURE GRANULOCYTES ABSOLUTE 0.01 10/3/uL (0.0-0.11); LYMPHOCYTES 11.1 %; LYMPHOCYTES ABSOLUTE 0.72 10/3/uL (0.67-4.30); MEAN CORPUS HGB CONC 31.5 g/dL (32.0-36.0); MEAN CORPUSCULAR HEMOGLOB 25.4 pg (26.0-34.0); MEAN CORPUSCULAR VOLUME 80.6 fL (80-100); MEAN PLATELET VOLUME 11.1 fL (9.2-13.0); MONOCYTES 16.2 %; MONOCYTES ABSOLUTE 1.05 10/3/uL (0.21-1.20); NEUTROPHILS 68.8 %; NEUTROPHILS ABSOLUTE 4.46 10/3/uL (2.02-8.40); PLATELET COUNT 150 10/3/uL (150-400); RBC DISTRIBUTION WIDTH 17.3 % (12.0-16.0); RED CELL COUNT 4.53 10/6/uL (4.7-6.1); WHITE BLOOD CELLS 6.5 10/3/uL (4.5-10.5)
[2016-12-26 05:23] LABS: MANUAL DIFF NO %
[2016-12-26 05:47] LABS: INTERNATIONAL NORMAL RATI 2.8 UNITS (-); PROTIME (NOT ORD) 29.4 SEC (12.0-14.5)
[2016-12-26 06:41] LABS: GLUCOSE, SERUM 118 MG/DL (60-99)
[2016-12-26 06:52] LABS: ALBUMIN 2.7 G/DL (3.5-5.0); CALCIUM, SERUM 8.3 MG/DL (8.5-10.4); CO2 (CARBON DIOXIDE) 38 MMOL/L (24-34); SODIUM, SERUM 134 MMOL/L (135-148)
[2016-12-26 06:53] LABS: BUN (BLOOD UREA NITROGEN) 57 MG/DL (6-23); CHLORIDE, SERUM 82 MMOL/L (96-112); CREATININE 1.98 MG/DL (0.70-1.30); GFR AFRICAN AMERICAN 40 ML/MIN (>=60); GFR NON AFRICAN AMERICAN 35 ML/MIN (>=60); PHOSPHORUS, SERUM 3.1 MG/DL (2.5-4.5); POTASSIUM, SERUM 2.9 MMOL/L (3.5-5.3)
[2016-12-27 04:23] LABS: BASOPHILS 0 %; EOSINOPHILS 2.4 %; EOSINOPHILS ABSOLUTE 0.15 10/3/uL (0.0-0.53); HEMATOCRIT 37.8 % (40.0-51.0); HEMOGLOBIN 11.9 g/dL (13.6-17.8); IMMATURE GRANULOCYTES 0.3 %; IMMATURE GRANULOCYTES ABSOLUTE 0.02 10/3/uL (0.0-0.11); LYMPHOCYTES 13.2 %; LYMPHOCYTES ABSOLUTE 0.82 10/3/uL (0.67-4.30); MEAN CORPUS HGB CONC 31.5 g/dL (32.0-36.0); MEAN CORPUSCULAR HEMOGLOB 25.5 pg (26.0-34.0); MEAN CORPUSCULAR VOLUME 81.1 fL (80-100); MEAN PLATELET VOLUME 10.7 fL (9.2-13.0); MONOCYTES 14.9 %; MONOCYTES ABSOLUTE 0.93 10/3/uL (0.21-1.20); NEUTROPHILS 69.2 %; NEUTROPHILS ABSOLUTE 4.31 10/3/uL (2.02-8.40); PLATELET COUNT 154 10/3/uL (150-400); RBC DISTRIBUTION WIDTH 17.4 % (12.0-16.0); RED CELL COUNT 4.66 10/6/uL (4.7-6.1); WHITE BLOOD CELLS 6.2 10/3/uL (4.5-10.5)
[2016-12-27 04:25] LABS: MANUAL DIFF NO %
[2016-12-27 04:36] LABS: PHOSPHORUS, SERUM 2.4 MG/DL (2.5-4.5); POTASSIUM, SERUM 3.2 MMOL/L (3.5-5.3)
[2016-12-27 04:37] LABS: INTERNATIONAL NORMAL RATI 2.3 UNITS (-)
[2016-12-27 04:40] LABS: SODIUM, SERUM 142 MMOL/L (135-148)
[2016-12-27 04:41] LABS: BUN (BLOOD UREA NITROGEN) 42 MG/DL (6-23); CHLORIDE, SERUM 92 MMOL/L (96-112); CO2 (CARBON DIOXIDE) 42 MMOL/L (24-34); CREATININE 1.36 MG/DL (0.70-1.30); GFR AFRICAN AMERICAN 63 ML/MIN (>=60); GFR NON AFRICAN AMERICAN 55 ML/MIN (>=60); GLUCOSE, SERUM 149 MG/DL (60-99)
[2016-12-27 04:45] LABS: PROTIME (NOT ORD) 24.9 SEC (12.0-14.5)
[2016-12-28 08:11] LABS: BASOPHILS 0 %; EOSINOPHILS 2.9 %; EOSINOPHILS ABSOLUTE 0.22 10/3/uL (0.0-0.53); HEMOGLOBIN 11.2 g/dL (13.6-17.8); IMMATURE GRANULOCYTES 0.3 %; IMMATURE GRANULOCYTES ABSOLUTE 0.02 10/3/uL (0.0-0.11); LYMPHOCYTES 13.6 %; LYMPHOCYTES ABSOLUTE 1.04 10/3/uL (0.67-4.30); MANUAL DIFF NO %; MEAN CORPUS HGB CONC 31.1 g/dL (32.0-36.0); MEAN CORPUSCULAR HEMOGLOB 25.5 pg (26.0-34.0); MEAN CORPUSCULAR VOLUME 81.8 fL (80-100); MEAN PLATELET VOLUME 10.7 fL (9.2-13.0); MONOCYTES ABSOLUTE 1.37 10/3/uL (0.21-1.20); NEUTROPHILS 65.2 %; NEUTROPHILS ABSOLUTE 4.98 10/3/uL (2.02-8.40); PLATELET COUNT 141 10/3/uL (150-400); RBC DISTRIBUTION WIDTH 17.5 % (12.0-16.0); WHITE BLOOD CELLS 7.6 10/3/uL (4.5-10.5)
[2016-12-28 08:20] LABS: INTERNATIONAL NORMAL RATI 2.1 UNITS (-); PROTIME (NOT ORD) 23.5 SEC (12.0-14.5)
[2016-12-28 08:34] LABS: CALCIUM, SERUM 9.1 MG/DL (8.5-10.4); CHLORIDE, SERUM 94 MMOL/L (96-112); CO2 (CARBON DIOXIDE) 39 MMOL/L (24-34); CREATININE 1.18 MG/DL (0.70-1.30); GFR AFRICAN AMERICAN 75 ML/MIN (>=60); GFR NON AFRICAN AMERICAN 65 ML/MIN (>=60); GLUCOSE, SERUM 127 MG/DL (60-99); PHOSPHORUS, SERUM 1.8 MG/DL (2.5-4.5); SODIUM, SERUM 140 MMOL/L (135-148)
[2016-12-28 08:37] LABS: BUN (BLOOD UREA NITROGEN) 34 MG/DL (6-23); POTASSIUM, SERUM 2.9 MMOL/L (3.5-5.3)
[2016-12-28 14:13] LABS: ALLENS TEST Pos; BE (BASE EXCESS) 13.2 MEQ/L (0 +/- 2.5); CARBOXYHEMOGLOBIN 1.4 % (0-3); DEVICE NC; HCO3 (ACTUAL BICARBONATE) 38.8 MEQ/L (23-27); HEMOBLOGIN CONTENT 13.1 G/DL (14-18); INSTRUMENT SERIAL # 35151; METHEMOGLOBIN 0.4 % (0-3); O2 CONTENT 16.4 VOL% (18-24); PCO2 (CO2 TENSION) 53 MMHG (35-45); PO2 (O2 TENSION) 56 MMHG (79-93); SAMPLE Arterial; pH 7.49 (7.37-7.43)
[2016-12-29 03:41] LABS: INTERNATIONAL NORMAL RATI 2.4 UNITS (-); PROTIME (NOT ORD) 25.9 SEC (12.0-14.5)
[2016-12-29 03:52] LABS: BUN (BLOOD UREA NITROGEN) 41 MG/DL (6-23); CALCIUM, SERUM 8.9 MG/DL (8.5-10.4); CHLORIDE, SERUM 95 MMOL/L (96-112); CO2 (CARBON DIOXIDE) 40 MMOL/L (24-34); CREATININE 1.36 MG/DL (0.70-1.30); GFR AFRICAN AMERICAN 63 ML/MIN (>=60); GFR NON AFRICAN AMERICAN 55 ML/MIN (>=60); GLUCOSE, SERUM 144 MG/DL (60-99); SODIUM, SERUM 139 MMOL/L (135-148)
[2016-12-30 04:27] LABS: HEMATOCRIT 39.3 % (40.0-51.0); HEMOGLOBIN 12.3 g/dL (13.6-17.8); MANUAL DIFF YES %; MEAN CORPUS HGB CONC 31.3 g/dL (32.0-36.0); MEAN CORPUSCULAR HEMOGLOB 25.7 pg (26.0-34.0); MEAN PLATELET VOLUME 11.4 fL (9.2-13.0); PLATELET COUNT 162 10/3/uL (150-400); RBC DISTRIBUTION WIDTH 18.2 % (12.0-16.0); RED CELL COUNT 4.79 10/6/uL (4.7-6.1); WHITE BLOOD CELLS 7.3 10/3/uL (4.5-10.5)
[2016-12-30 04:29] LABS: INTERNATIONAL NORMAL RATI 2.5 UNITS (-); PROTIME (NOT ORD) 26.9 SEC (12.0-14.5)
[2016-12-30 04:40] LABS: CALCIUM, SERUM 8.8 MG/DL (8.5-10.4); CHLORIDE, SERUM 95 MMOL/L (96-112); CO2 (CARBON DIOXIDE) 37 MMOL/L (24-34); CREATININE 1.65 MG/DL (0.70-1.30); GFR AFRICAN AMERICAN 50 ML/MIN (>=60); GFR NON AFRICAN AMERICAN 43 ML/MIN (>=60); GLUCOSE, SERUM 142 MG/DL (60-99); SODIUM, SERUM 137 MMOL/L (135-148)
[2016-12-30 04:45] LABS: ANISOCYTOSIS 1+ (5-10/OIF) (0-5/OIF); EOSINOPHILS 5 %; EOSINOPHILS ABSOLUTE (CALC) 0.37 10/3/uL (0.0-0.53); HYPOCHROMIA 1+ (3-10/OIF) (0-2/OIF); LYMPHOCYTES 17 %; LYMPHOCYTES ABSOLUTE (CALC) 1.24 10/3/uL (0.67-4.30); MONOCYTES 14 %; MONOCYTES ABSOLUTE (CALC) 1.02 10/3/uL (0.21-1.20); NEUTROPHILS ABSOLUTE (CALC) 4.67 10/3/uL (2.02-8.40); PLATELET ESTIMATE ADQ (ADEQUATE); SEGMENTED NEUTROPHIL (0) 64 %; TOTAL NUCLEATED CELLS 100
[2016-12-30 04:49] LABS: BUN (BLOOD UREA NITROGEN) 48 MG/DL (6-23)
[2016-12-31 04:57] LABS: INTERNATIONAL NORMAL RATI 2.9 UNITS (-); PROTIME (NOT ORD) 29.8 SEC (12.0-14.5)
[2016-12-31 05:00] LABS: HEMATOCRIT 39.4 % (40.0-51.0); HEMOGLOBIN 12.6 g/dL (13.6-17.8); MEAN CORPUSCULAR VOLUME 81.4 fL (80-100); NUCLEATED RED BLOOD CELLS 4.8 /100WBC (0-0); PLATELET COUNT 166 10/3/uL (150-400); RED CELL COUNT 4.84 10/6/uL (4.7-6.1)
[2016-12-31 05:05] LABS: WHITE BLOOD CELLS 10.6 10/3/uL (4.5-10.5)
[2016-12-31 05:10] LABS: MANUAL DIFF YES %
[2016-12-31 05:25] LABS: ALBUMIN 3.2 G/DL (3.5-5.0); BUN (BLOOD UREA NITROGEN) 54 MG/DL (6-23); CALCIUM, SERUM 8.8 MG/DL (8.5-10.4); CHLORIDE, SERUM 92 MMOL/L (96-112); CO2 (CARBON DIOXIDE) 33 MMOL/L (24-34); CREATININE 1.72 MG/DL (0.70-1.30); GFR AFRICAN AMERICAN 48 ML/MIN (>=60); GFR NON AFRICAN AMERICAN 41 ML/MIN (>=60); GLUCOSE, SERUM 156 MG/DL (60-99); PHOSPHORUS, SERUM 2.5 MG/DL (2.5-4.5); POTASSIUM, SERUM 4.8 MMOL/L (3.5-5.3); SODIUM, SERUM 133 MMOL/L (135-148)
[2016-12-31 06:20] LABS: EOSINOPHILS 1 %; EOSINOPHILS ABSOLUTE (CALC) 0.11 10/3/uL (0.0-0.53); LYMPHOCYTES 15 %; LYMPHOCYTES ABSOLUTE (CALC) 1.59 10/3/uL (0.67-4.30); MONOCYTES 10 %; MONOCYTES ABSOLUTE (CALC) 1.06 10/3/uL (0.21-1.20); NEUTROPHILS ABSOLUTE (CALC) 7.84 10/3/uL (2.02-8.40); SEGMENTED NEUTROPHIL (0) 74 %; TOTAL NUCLEATED CELLS 100
[2016-12-31 06:21] LABS: ANISOCYTOSIS 1+ (5-10/OIF) (0-5/OIF); PLATELET ESTIMATE ADQ (ADEQUATE)
[2016-12-31] MEDS ORDERED: PROAIR HFA INH (14:26)
[2016-12-31] MEDS ORDERED: FLOMAX4 PO (14:26)
== END 2016-12-31 16:21 | disposition home health service (06) | DRG 291 ==
LOC: ER 13:00 → CDU1 14:54 → 6NO 12-23 17:00 → CCU 12-23 19:02 → 5NO 12-27 19:43
PROVIDERS: Hospitalist; Internal Medicine; Internal Medicine Cardiovascular Disease; Internal Medicine Critical Care Medicine; Internal Medicine Nephrology; Internal Medicine Pulmonary Disease; Nurse Practitioner Family
PROC: 5A09357 Assistance with Respiratory Ventilation, Less than 24 Consecutive Hours, Continuous Positive Airway Pressure (ICD-10-PCS; principal; 2016-12-23)
PROC: 4B02XTZ Measurement of Cardiac Defibrillator, External Approach (ICD-10-PCS; 2016-12-23)
PROC: 02HV33Z Insertion of Infusion Device into Superior Vena Cava, Percutaneous Approach (ICD-10-PCS; 2016-12-24)
PROC: 4A02X4A Measurement of Cardiac Electrical Activity, Guidance, External Approach (ICD-10-PCS; 2016-12-24)
DX: I13.0 Hypertensive heart and chronic kidney disease with heart failure and stage 1 through stage 4 chronic kidney disease, or unspecified chronic kidney disease (principal); I50.23 Acute on chronic systolic (congestive) heart failure; G92 Toxic encephalopathy; G93.1 Anoxic brain damage, not elsewhere classified; J96.01 Acute respiratory failure with hypoxia; J96.02 Acute respiratory failure with hypercapnia; I27.2 Other secondary pulmonary hypertension; N17.9 Acute kidney failure, unspecified; E11.22 Type 2 diabetes mellitus with diabetic chronic kidney disease; E66.2 Morbid (severe) obesity with alveolar hypoventilation; N18.3 Chronic kidney disease, stage 3 (moderate); Z68.42 Body mass index [BMI] 45.0-49.9, adult; J44.1 Chronic obstructive pulmonary disease with (acute) exacerbation; I42.8 Other cardiomyopathies; I48.0 Paroxysmal atrial fibrillation; G89.29 Other chronic pain; M10.9 Gout, unspecified; N40.1 Benign prostatic hyperplasia with lower urinary tract symptoms; E87.5 Hyperkalemia; I07.1 Rheumatic tricuspid insufficiency; E87.6 Hypokalemia; E78.5 Hyperlipidemia, unspecified; T40.2X5A Adverse effect of other opioids, initial encounter; Z79.01 Long term (current) use of anticoagulants; Z95.810 Presence of automatic (implantable) cardiac defibrillator; Z86.718 Personal history of other venous thrombosis and embolism; Z79.82 Long term (current) use of aspirin; Z79.4 Long term (current) use of insulin
CPT/HCPCS: 36569; 36600; 71010; 74000; 74176; 80048; 80053; 80069; 80076; 82140; 82533; 82550; 82553; 82805; 82962; 83036; 83605; 83735; 83880; 84100; 84132; 84145; 84443; 84484; 85025; 85027; 85610; 85730; 93005; 93970; 94640; 94660; 96374; 97110-GP; 97116-GP; 97161-GP; 97164-GP; 97166-GO; 97530-GO; 97530-GP; 99285; A9270-GY; C1751; C8929; G8978-CK-GP; G8979-CJ-GP; G8987-CJ-GO; G8988-CI-GO; J1170; J1205; J1956; J2405; J2930; Q9957

== ENCOUNTER 2016-12-31 17:52 | Emergency (ER) | payer OTHER, MEDICARE, BC ==
[~2016-12-31 17:52] MED LIST changes: +BETAPACE80 PO; +COZ25 PO; +JANTOVEN3 MG PO; +LYRICA100 MG PO; +PERCOCET 10/3251 TAB PO; +PROAIR HFA INH
[2016-12-31 20:07] LABS: HEMATOCRIT 36.8 % (40.0-51.0); HEMOGLOBIN 11.9 g/dL (13.6-17.8); MEAN CORPUS HGB CONC 32.3 g/dL (32.0-36.0); MEAN CORPUSCULAR HEMOGLOB 26.1 pg (26.0-34.0); MEAN CORPUSCULAR VOLUME 80.7 fL (80-100); MEAN PLATELET VOLUME 11.6 fL (9.2-13.0); PLATELET COUNT 150 10/3/uL (150-400); RBC DISTRIBUTION WIDTH 18.2 % (12.0-16.0); RED CELL COUNT 4.56 10/6/uL (4.7-6.1); WHITE BLOOD CELLS 10.3 10/3/uL (4.5-10.5)
[2016-12-31 20:10] LABS: INTERNATIONAL NORMAL RATI 3.3 UNITS (-); PROTIME (NOT ORD) 33.4 SEC (12.0-14.5)
[2016-12-31 20:21] LABS: ALBUMIN 3.4 G/DL (3.5-5.0); ALKALINE PHOSPHATASE 100 U/L (45-117); CALCIUM, SERUM 8.7 MG/DL (8.5-10.4); CHLORIDE, SERUM 91 MMOL/L (96-112); CO2 (CARBON DIOXIDE) 32 MMOL/L (24-34); CREATININE 1.79 MG/DL (0.70-1.30); GFR AFRICAN AMERICAN 45 ML/MIN (>=60); GFR NON AFRICAN AMERICAN 39 ML/MIN (>=60); GLOBULIN 3.5 G/DL (2.5-4.1); GLUCOSE, SERUM 140 MG/DL (60-99); POTASSIUM, SERUM 5.2 MMOL/L (3.5-5.3); SGOT(AST) 20 U/L (5-40); SGPT(ALT) 38 U/L (5-65); SODIUM, SERUM 132 MMOL/L (135-148); TOTAL PROTEIN 6.9 G/DL (6.0-8.5)
[2016-12-31 20:22] LABS: BUN (BLOOD UREA NITROGEN) 60 MG/DL (6-23); TOTAL BILIRUBIN 1.4 MG/DL (0-1.2)
== END 2016-12-31 22:22 | disposition left against medical advice (07) ==
LOC: ER 17:52
PROVIDERS: Hospitalist
DX: Z53.21 Procedure and treatment not carried out due to patient leaving prior to being seen by health care provider (principal)
CPT/HCPCS: 70450; 80053; 85027; 85610

== ENCOUNTER 2017-03-05 13:19 | Emergency (ER) | payer MEDICARE, BC ==
[2017-03-05 12:30] LABS: BASOPHILS 0.4 %; BASOPHILS ABSOLUTE 0.03 10/3/uL (0.0-0.16); EOSINOPHILS 2.1 %; EOSINOPHILS ABSOLUTE 0.15 10/3/uL (0.0-0.53); HEMATOCRIT 32.9 % (40.0-51.0); HEMOGLOBIN 10.4 g/dL (13.6-17.8); IMMATURE GRANULOCYTES 0.6 %; IMMATURE GRANULOCYTES ABSOLUTE 0.04 10/3/uL (0.0-0.11); LYMPHOCYTES 10.1 %; LYMPHOCYTES ABSOLUTE 0.73 10/3/uL (0.67-4.30); MANUAL DIFF NO %; MEAN CORPUS HGB CONC 31.6 g/dL (32.0-36.0); MEAN CORPUSCULAR HEMOGLOB 26.4 pg (26.0-34.0); MEAN CORPUSCULAR VOLUME 83.5 fL (80-100); MEAN PLATELET VOLUME 10.2 fL (9.2-13.0); MONOCYTES 12.6 %; MONOCYTES ABSOLUTE 0.91 10/3/uL (0.21-1.20); NEUTROPHILS 74.2 %; NEUTROPHILS ABSOLUTE 5.35 10/3/uL (2.02-8.40); PLATELET COUNT 207 10/3/uL (150-400); RBC DISTRIBUTION WIDTH 17.9 % (12.0-16.0); RED CELL COUNT 3.94 10/6/uL (4.7-6.1); WHITE BLOOD CELLS 7.2 10/3/uL (4.5-10.5)
[2017-03-05 12:37] LABS: INTERNATIONAL NORMAL RATI 2.2 UNITS (-); PARTIAL THROMBO TIME 41.6 SEC (22.5-37.2); PROTIME (NOT ORD) 24.5 SEC (12.0-14.5)
[2017-03-05 12:46] LABS: BUN (BLOOD UREA NITROGEN) 52 MG/DL (6-23); CALCIUM, SERUM 8.8 MG/DL (8.5-10.4); CHEST PAIN PROFILE TAT 0 Hrs 20 Mins; CHLORIDE, SERUM 96 MMOL/L (96-112); CO2 (CARBON DIOXIDE) 35 MMOL/L (24-34); CREATININE 1.24 MG/DL (0.70-1.30); GFR AFRICAN AMERICAN 71 ML/MIN (>=60); GFR NON AFRICAN AMERICAN 61 ML/MIN (>=60); GLUCOSE, SERUM 167 MG/DL (60-99); POTASSIUM, SERUM 3.4 MMOL/L (3.5-5.3); SODIUM, SERUM 134 MMOL/L (135-148); TROPONIN I 0.04 NG/ML (<0.05)
== END 2017-03-05 16:06 | disposition home or self-care (01) ==
LOC: ER 13:19
PROVIDERS: Hospitalist
DX: I50.9 Heart failure, unspecified (principal); G47.30 Sleep apnea, unspecified; I48.91 Unspecified atrial fibrillation; E11.22 Type 2 diabetes mellitus with diabetic chronic kidney disease; N18.9 Chronic kidney disease, unspecified; Z95.0 Presence of cardiac pacemaker; Z79.82 Long term (current) use of aspirin; Z79.899 Other long term (current) drug therapy
CPT/HCPCS: 71010; 80048; 83735; 83880; 84484; 85025; 85610; 85730; 93005; 96374; 99284

== ENCOUNTER 2017-03-15 10:49 | Inpatient (IN) | payer MEDICARE, BC ==
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
--- NOTE | ~2017-03-15 | HP ---
History And Physical [address] [place]. [address] NAME: SYEDA MARTINEZ : 54 STATUS : ADM IN PAT#: [id number] AGE: 66 ADM/REG DATE : 03/15/17 MR#: [id number] REPORT SERV DATE: 03/15/17 DICTATED BY: MILDRED BENAVIDES DATE: 03/15/17 REPORT STATUS : Draft TRANSCRIBED BY: MODL DATE: 03/15/17 DATE OF ADMISSION: 03/15/2017 CHIEF COMPLAINT: Shortness of breath. HISTORY OF PRESENT ILLNESS: The patient is a 66-year-old white gentleman with past medical history of morbid obesity, obesity hypoventilation syndrome, congestive heart failure, and paroxysmal atrial fibrillation, who presents to the emergency room today with complaints of shortness of breath. Per the patient, he went for a spine CT earlier today for evaluation of back pain. Following contrast administration, he described getting very flushed and hot as well as diaphoretic. He also developed acute shortness of breath. They took him to the emergency room, where he had a syncopal episode and had some borderline hypotension. He was also quite tachypneic. He did not have hypercapnia, but they placed him on BiPAP for work of breathing and gave him some diuretics and sent him to the ICU for further management. The patient says that his weight has been up and down recently, but he has been taking his diuretics as prescribed. He follows with Dr. López for congestive heart failure and I saw them a month ago. He denies any chest pain and says the shortness of breath has improved. On arrival to the ICU, he is off BiPAP and currently breathing comfortably with no acute distress. PAST MEDICAL HISTORY: 1. Morbid obesity with obesity hypoventilation syndrome on home BiPAP at night. 2. Nonischemic cardiomyopathy with left ventricular ejection fraction of 30% followed by Dr. López. 3. Status post ICD placement for paroxysmal atrial fibrillation. 4. Hypertension. 5. Depression. 6. Chronic pain. 7. History of left lower extremity DVT. 8. Obstructive sleep apnea. 9. Insulin-dependent diabetes. HOME MEDICATIONS: See medication reconciliation form. ALLERGIES: NO KNOWN DRUG ALLERGIES. SOCIAL HISTORY: No tobacco, alcohol, or IV drug abuse. FAMILY HISTORY: Reviewed and positive for diabetes and coronary artery disease. REVIEW OF SYSTEMS: 10-point review of systems is negative except as mentioned in the HPI. PHYSICAL EXAMINATION: VITAL SIGNS: Temperature 97.7, heart rate 83, respiratory rate 15, blood pressure 109/67. GENERAL: No acute distress. Morbidly obese gentleman. History And Physical [address] [address] NAME: SYEDA MARTINEZ : 54 STATUS : ADM IN [facility]#: [id number] AGE: 66 ADM/REG DATE : 03/15/17 MR#: [id number] REPORT SERV DATE: 03/15/17 DICTATED BY: MILDRED BENAVIDES DATE: 03/15/17 REPORT STATUS : Draft TRANSCRIBED BY: MODL DATE: 03/15/17 HEENT: Pupils equal, round, and reactive to light. Extraocular movements intact. Oropharynx clear. Moist mucous membranes. NECK: Supple. Nontender. No lymphadenopathy. No thyromegaly. No jugular venous distention. LUNGS: Mild bilateral crackles. No wheezes. CARDIOVASCULAR: Regular rate and rhythm. No murmurs, rubs, or gallops. ABDOMEN: Soft, nontender, nondistended. Positive bowel sounds. No hepatosplenomegaly. EXTREMITIES: Trace pitting edema bilaterally. NEURO: Alert, oriented x3. Cranial nerves intact. PSYCH: Mood appropriate. LABS AND IMAGING: ABG with a pH of 7.41, pCO2 of 49, PO2 58. CBC unremarkable. Chest x-ray shows cardiomegaly with mild interstitial edema. Metabolic panel with a potassium of 3.2, creatinine of 1.8. Troponin 0.06. ASSESSMENT AND PLAN: The patient is a 66-year-old gentleman with past medical history of congestive heart failure, obesity hypoventilation syndrome, and type 2 diabetes, who presents with acute shortness of breath following a contrast administration, concerned for potential allergic reaction given his flushing and syncopal episode with shortness of breath. His pulmonary edema on his chest x-ray is most likely a combination of some mild systolic congestive heart failure with possibly some noncardiogenic pulmonary edema from possible allergic reaction. The patient currently looks comfortable and is on nasal cannula, not requiring BiPAP. We will observe in ICU overnight. He has already been given some diuretics. We will hold his diuretics for now. Given his borderline blood pressure and elevated creatinine, I suspect that he may actually be intravascularly depleted and may require volume if his blood pressure drops further or he has poor urine output. We will let him sleep with BiPAP tonight as he does at home. Otherwise, we will continue his other home medications. Get Dr. López to see him tomorrow. The patient will remain in the ICU overnight for close observation. MORAIMA/MODMariluz Midlred Benavides MD / [id number] CC: Mildred Benavides MD
--- NOTE | ~2017-03-15 | CN ---
Consultation Report [facility] [address] [place]. [address] NAME: SYEDA MARTINEZ : 54 STATUS : ADM IN PAT#: [id number] AGE: 66 ADM/REG DATE : 03/15/17 MR#: [id number] REPORT SERV DATE: 03/16/17 DICTATED BY: SHRUTHI ZAZUETA DATE: 03/15/17 REPORT STATUS : Draft TRANSCRIBED BY: MODMariluz DATE: 03/15/17 CARDIOLOGY CONSULTATION NOTE DATE OF CONSULTATION: HISTORY OF PRESENT ILLNESS: This obese 66-year-old white male, nonsmoker, lives with his and daughter, said that he went to the [facility] for a CT scan of the back and after injection lost consciousness. In the emergency room, he was found to be short of breath and was admitted to the medical intensive care unit for diuresis having had known nonischemic cardiomyopathy with ejection fraction of 35% range for which he received an AICD and BAR USEFUL OR BUSSER therapy. He has known chronic kidney disease and obstructive sleep apnea. There is history of hypertension and type 2 diabetes mellitus. His EKG is paced. His troponin is 0.06 and creatinine is elevated at 1.81. FAMILY HISTORY: Positive for caner. PREVIOUS OPERATIONS: Include left knee surgery and his pacemaker. ALLERGIES: HE HAS NO KNOWN ALLERGIES TO MEDICATION. SOCIAL HISTORY: This gentleman is and has grown children. MEDICATIONS: Have included ProAir, allopurinol, Bumex carvedilol, Trulicity, duloxetine, insulin, potassium, pravastatin, tamoxifen, and warfarin. He has a history of paroxysmal atrial fibrillation and has tolerated the warfarin well and his EKG is paced with biventricular pacemaker tonight. His INR is 3.1, being adjusted by the pharmacist. Chest x-ray showed interstitial pulmonary edema and cardiomegaly. He states he has chest pain "24/7" with chronic pain syndrome. At the present time, he is comfortable, not having chest pain or shortness of breath. He does have venous varicosity disease with chronic moderate edema and sits most of the day in a chair. REVIEW OF SYSTEMS: Otherwise all negative. PHYSICAL EXAMINATION: VITAL SIGNS: His blood pressure is 120/60. HEENT: Head is normocephalic. He is edentulous. Eyes, PERRLA. Nose, has no epistaxis. SKIN: Clear of ulceration. NECK: Supple. CHEST: Clear. Good breath sounds and absence of rales, rhonchi, or wheezes. HEART: Has an S1, S2 elida. I hear no S3 gallop. There is no pathologic murmur tonight. ABDOMEN: Morbidly obese. No hepatosplenomegaly noted. EXTREMITIES: He has compressive DVT prophylaxis appliances with venous varicosity disease Consultation Report [address] [place]. [address] NAME: SYEDA MARTINEZ : 54 STATUS : ADM IN [facility]#: [id number] AGE: 66 ADM/REG DATE : 03/15/17 MR#: [id number] REPORT SERV DATE: 03/16/17 DICTATED BY: SHRUTHI ZAZUETA DATE: 03/15/17 REPORT STATUS : Draft TRANSCRIBED BY: MICHAEL DATE: 03/15/17 and moderate ankle and foot edema. His legs are not tender. NEUROLOGIC: Intact. He is oriented to time, place, and person. CLINICAL IMPRESSION: 1. Congestive heart failure with nonischemic cardiomyopathy and ejection fraction in the 35% range. 2. Status post AICD/chronic/cardiac resynchronization therapy. 3. Chronic kidney disease. 4. Obstructive sleep apnea. 5. Paroxysmal atrial fibrillation. 6. Hypertensive cardiovascular disease. 7. Type 2 diabetes mellitus. 8. Mild troponin elevation-probably chronic. RECOMMENDATIONS: 1. He is on proper medication and feels much better after diuresis today. 2. We will check serial troponins. 3. We will obtain office records. 4. [facility] was reviewed with a previous admission of 12/16/2016. 5. Dr. López will continue to follow him when he returns to call. RB/MICHAEL Shruthi Zazueta M.D. / [id number] CC: Castillo Guo MD
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
--- NOTE | ~2017-03-15 | CN ---
Consultation Report [facility] [address] [place]. [address] NAME: SYEDA MARTINEZ : 54 STATUS : ADM IN PAT#: [id number] AGE: 66 ADM/REG DATE : 03/15/17 MR#: [id number] REPORT SERV DATE: 03/17/17 DICTATED BY: DATE: REPORT STATUS : Draft TRANSCRIBED BY: MODL DATE: 03/17/17 CONSULTATION DATE OF CONSULTATION: 03/17/2017 REASON FOR CONSULTATION: Acute kidney injury on chronic kidney disease. HISTORY OF PRESENT ILLNESS: This is a very pleasant 66-year-old, morbidly obese, male patient. We were asked to evaluate for acute kidney injury. He has been seen in previous inpatient hospitalizations, being evaluated in consultation by Dr. Jose Cruz Hutson on 12/24/2016, for acute kidney injury with volume overload. Baseline creatinine was felt to be around 1.1 to 1.4. At that point of dictation, he is known as well to have nonischemic cardiomyopathy with AICD with ejection fraction at 30% with RVSP at 44 mmHg. He returns to [facility] for complaint of possible acute reaction to contrast that he was receiving for a lower back CT. Creatinine on 12/31/2016 when discharged from the hospital and from our service at that point was at 1.72. It is unclear through review with the patient if he was slated for followup with our office or has made it for said followup if it had been scheduled. He had an outpatient CT with IV contrast by report eliciting some flushing and some shortness of breath prompting him to be evaluated here at [facility]. On presentation here at [facility], he suffered a brady syncopal episode and was transitioned to the ICU setting under the care of Dr. Castillo Guo in light of his elevated creatinine and his stable respiratory status. Diuretics were held as his creatinine was elevated at 2.05. His creatinine has continued to elevate today to 2.[address] Veliz for evaluation for acute kidney injury. The patient is awake and alert. He is sitting up during evaluation, who at baseline is short of breath, but not overtly tachypneic. PAST MEDICAL HISTORY: Positive for morbid obesity with chronic BiPAP support at sleep. History also positive for chronic kidney disease. Baseline creatinine at point of dictation in early December of 1.1 to 1.4. Nonischemic cardiomyopathy with AICD with ejection fraction at 30% with RVSP 44 mmHg. Insulin-dependent diabetes mellitus without proteinuria, paroxysmal atrial fibrillation with chronic Coumadin use, obstructive sleep apnea as above, hyperlipidemia, chronic pain, question of possible dementia. HOME MEDICATIONS: Include ProAir HFA two puffs inhaled p.r.n. for shortness of breath, Zyloprim 300 mg p.o. daily, Bumex 1 tablet p.o. at bedtime and 2 mg p.o. daily, Coreg 3.125 mg p.o. b.i.d., Trulicity 0.5 mg subcu on Wednesday, Cymbalta 60 mg p.o. daily, insulin NovoLog 8 units subcu before meals and Levemir 16 units subcu b.i.d., Axid 150 mg p.o. at bedtime, Percocet one tablet p.o. q.6 hours p.r.n. 10/325, Klor-Con 20 mEq p.o. daily, pravastatin 40 mg p.o. at bedtime, Flomax 0.4 mg p.o. daily, and warfarin 3 mg p.o. daily. ALLERGIES: HE LISTS ALLERGIES NO KNOWN ALLERGIES. REVIEW OF SYSTEMS: Consultation Report [address] [place]. [address] NAME: SYEDA MARTINEZ : 54 STATUS : ADM IN [facility]#: [id number] AGE: 66 ADM/REG DATE : 03/15/17 MR#: [id number] REPORT SERV DATE: 03/17/17 DICTATED BY: DATE: REPORT STATUS : Draft TRANSCRIBED BY: MODMariluz DATE: 03/17/17 Review of systems is completed. Please see HPI for pertinent details. SOCIAL HISTORY: No EtOH. No illicit drugs. No tobacco. FAMILY HISTORY: Noncontributory and not reviewed during this consultation and dictation. PHYSICAL EXAMINATION: VITAL SIGNS: Blood pressure 114/71, temperature 97.9, heart rate at 81 beats per minute and regular, 20 respirations per minute, 97% on 3 L with chronic BiPAP support at night. GENERAL: He is a morbidly obese, short of breath, but not overtly tachypneic, male, who is awake and alert, sitting at bedside during evaluation. HEENT: Normocephalic, atraumatic. Normal ocular movements. No scleral icterus. No conjunctival pallor is appreciated. NECK: Without thyromegaly. No JVD or mass. CHEST: Shows positive S1 and S2. No rubs or gallops. LUNGS: Diminished throughout. No rhonchi or wheezes are detected on auscultation. GI: Shows a morbidly obese. Abdomen is firm and nontender, but not tympanic and does not elicit pain to palpation. NEUROLOGIC: Appears to be grossly intact. Nonfocal. SKIN: Warm, dry, intact to visualized surfaces. No rash, lesions, or ecchymosis. : Deferred. He does however have a Burgos catheter to bedside drainage with clear yellow urine. PSYCH: He appears to be as well of normal affect and mood. LABORATORY DATA: Pertinent laboratories and imaging to this evaluation. Most recent portable chest x-ray, cardiomegaly with peripheral edema and small amount of pleural effusion which is similar and unchanged to prior exams according to the dictation. Most recent CBC: White blood cell count 12.7, RBC 4.23, hemoglobin 11.4, hematocrit 35.3, platelets 197. Electrolyte profile: Sodium 130, potassium 4.1, chloride 94, CO2 of 32, BUN 73, creatinine 2.20, reflected GFR 31 mL/minute, glucose of 186, calcium 8.5, magnesium 2.6. We do not have a recent urinalysis for commentary. IMPRESSION AND PLAN: Acute kidney injury on chronic kidney disease. Baseline creatinine as listed above consistent with chronic kidney disease stage 3 to stage 4. Now readmitted to [facility] with recent contrast provided for CT of the spine with complaint of back pain, brady syncopal episode elicited during evaluation in the emergency department with transition to ICU care now to the floor with acute kidney injury and creatinine elevated today at 2.20 with positive urinary output, decreased albumin and known history as listed above. On admission, he was felt to be intravascularly depleted, but it appears this gentleman is centralizing his fluid retention. His chest x-ray suggests that he may be somewhat volume overloaded and considering his known pulmonary history and shortness of breath. We will place him on albumin 25 mg IV q.8 x4 doses and dose albumin 2 mg IV q.8 in tandem with that medication. Hopefully, this will work to essentially mobilize his fluid. Check urine spot for urine creatinine, urine urea, and urine eosinophils. Check echocardiogram with pulmonary pressures. He has had some level of difficulty with Consultation Report [id number] [place]. [address] NAME: SYEDA MARTINEZ : 54 STATUS : ADM IN PAT#: [id number] AGE: 66 ADM/REG DATE : 03/15/17 MR#: [id number] REPORT SERV DATE: 03/17/17 DICTATED BY: DATE: REPORT STATUS : Draft TRANSCRIBED BY: MODL DATE: 03/17/17 constipation. As of late, we will place him on MiraLAX p.o. b.i.d. x2 doses. We would consider the possibility of doing CT of the abdomen and pelvis without contrast if he has had previous indications that he may have some level of ascites and may benefit from withdrawal of said abdominal fluid with paracentesis if clinically applicable. I suspect that this gentleman has suffered an acute kidney injury related to contrast-induced nephropathy plus or minus ATN from hypotension and noted syncopal episode on admission here. Further modification of treatment plan may be made based on clinical presentation of the patient, laboratory results, further consultation with renal attending. We appreciate consultation. We are glad to follow this gentleman with you. BENOIT Hari Greer NP / [id number] CC: MD Daniel Rivera M.D.
[2017-03-15] MEDS ORDERED: COREG3 PO (11:38)
[2017-03-15 11:39] LABS: ALLENS TEST Pos; BE (BASE EXCESS) 4.3 MEQ/L (0 +/- 2.5); CARBOXYHEMOGLOBIN 1.8 % (0-3); DEVICE NC; HCO3 (ACTUAL BICARBONATE) 29.8 MEQ/L (23-27); HEMOBLOGIN CONTENT 12.3 G/DL (14-18); INSTRUMENT SERIAL # 8087; METHEMOGLOBIN 0.3 % (0-3); OPERATOR ID 35798; PCO2 (CO2 TENSION) 49 MMHG (35-45); PO2 (O2 TENSION) 58 MMHG (79-93); SAMPLE Arterial; pH 7.41 (7.37-7.43)
[2017-03-15 11:48] LABS: BASOPHILS 0 %; EOSINOPHILS 0 %; HEMATOCRIT 35.9 % (40.0-51.0); HEMOGLOBIN 11.7 g/dL (13.6-17.8); IMMATURE GRANULOCYTES 0.6 %; IMMATURE GRANULOCYTES ABSOLUTE 0.03 10/3/uL (0.0-0.11); LYMPHOCYTES 4.8 %; LYMPHOCYTES ABSOLUTE 0.23 10/3/uL (0.67-4.30); MEAN CORPUS HGB CONC 32.6 g/dL (32.0-36.0); MEAN CORPUSCULAR HEMOGLOB 27.5 pg (26.0-34.0); MEAN CORPUSCULAR VOLUME 84.3 fL (80-100); MEAN PLATELET VOLUME 10.2 fL (9.2-13.0); MONOCYTES 1.9 %; MONOCYTES ABSOLUTE 0.09 10/3/uL (0.21-1.20); NEUTROPHILS 92.7 %; NEUTROPHILS ABSOLUTE 4.47 10/3/uL (2.02-8.40); PLATELET COUNT 158 10/3/uL (150-400); RBC DISTRIBUTION WIDTH 17.7 % (12.0-16.0); RED CELL COUNT 4.26 10/6/uL (4.7-6.1); WHITE BLOOD CELLS 4.8 10/3/uL (4.5-10.5)
[2017-03-15 11:49] LABS: ER CBC TAT 0 Hrs 09 Mins; MANUAL DIFF NO %
[2017-03-15 11:55] LABS: INTERNATIONAL NORMAL RATI 3.1 UNITS (-)
[2017-03-15 11:56] LABS: PARTIAL THROMBO TIME 41.9 SEC (22.5-37.2); PROTIME (NOT ORD) 31.5 SEC (12.0-14.5)
[2017-03-15 12:06] LABS: A/G RATIO 0.9 (0.7-1.9); ALBUMIN 2.8 G/DL (3.5-5.0); ALKALINE PHOSPHATASE 99 U/L (45-117); CALCIUM, SERUM 8.7 MG/DL (8.5-10.4); CHLORIDE, SERUM 98 MMOL/L (96-112); CO2 (CARBON DIOXIDE) 32 MMOL/L (24-34); POTASSIUM, SERUM 3.2 MMOL/L (3.5-5.3); SGOT(AST) 15 U/L (5-40); SGPT(ALT) 11 U/L (5-65); SODIUM, SERUM 139 MMOL/L (135-148); TOTAL PROTEIN 5.8 G/DL (6.0-8.5)
[2017-03-15 12:07] LABS: BUN (BLOOD UREA NITROGEN) 56 MG/DL (6-23); CREATININE 1.81 MG/DL (0.70-1.30); GFR AFRICAN AMERICAN 45 ML/MIN (>=60); GFR NON AFRICAN AMERICAN 39 ML/MIN (>=60); GLUCOSE, SERUM 44 MG/DL (60-99); TOTAL BILIRUBIN 0.9 MG/DL (0-1.2); TROPONIN I 0.06 NG/ML (<0.05)
[2017-03-15 19:08] LABS: PROCALCITONIN 0.36 ng/mL (<0.5)
[2017-03-16 02:34] LABS: BASOPHILS 0 %; EOSINOPHILS 0 %; HEMATOCRIT 32.8 % (40.0-51.0); HEMOGLOBIN 10.5 g/dL (13.6-17.8); IMMATURE GRANULOCYTES 0.3 %; IMMATURE GRANULOCYTES ABSOLUTE 0.04 10/3/uL (0.0-0.11); LYMPHOCYTES 1.9 %; LYMPHOCYTES ABSOLUTE 0.27 10/3/uL (0.67-4.30); MEAN CORPUSCULAR HEMOGLOB 26.8 pg (26.0-34.0); MEAN CORPUSCULAR VOLUME 83.7 fL (80-100); MEAN PLATELET VOLUME 11.2 fL (9.2-13.0); MONOCYTES 2.1 %; NEUTROPHILS 95.7 %; NEUTROPHILS ABSOLUTE 13.71 10/3/uL (2.02-8.40); PLATELET COUNT 201 10/3/uL (150-400); RBC DISTRIBUTION WIDTH 17.7 % (12.0-16.0); RED CELL COUNT 3.92 10/6/uL (4.7-6.1)
[2017-03-16 02:35] LABS: MANUAL DIFF NO %; WHITE BLOOD CELLS 14.3 10/3/uL (4.5-10.5)
[2017-03-16 02:52] LABS: BUN (BLOOD UREA NITROGEN) 62 MG/DL (6-23); CALCIUM, SERUM 8.6 MG/DL (8.5-10.4); CHLORIDE, SERUM 93 MMOL/L (96-112); CO2 (CARBON DIOXIDE) 35 MMOL/L (24-34); CREATININE 2.05 MG/DL (0.70-1.30); GFR AFRICAN AMERICAN 39 ML/MIN (>=60); GFR NON AFRICAN AMERICAN 33 ML/MIN (>=60); GLUCOSE, SERUM 255 MG/DL (60-99); PHOSPHORUS, SERUM 4.3 MG/DL (2.5-4.5); POTASSIUM, SERUM 3.7 MMOL/L (3.5-5.3); SODIUM, SERUM 134 MMOL/L (135-148); TROPONIN I 0.03 NG/ML (<0.05)
[2017-03-16 05:06] LABS: INTERNATIONAL NORMAL RATI 3.5 UNITS (-); PROTIME (NOT ORD) 34.7 SEC (12.0-14.5)
[2017-03-17 03:47] LABS: HEMATOCRIT 35.3 % (40.0-51.0); HEMOGLOBIN 11.4 g/dL (13.6-17.8); MEAN CORPUS HGB CONC 32.3 g/dL (32.0-36.0); MEAN CORPUSCULAR VOLUME 83.5 fL (80-100); MEAN PLATELET VOLUME 10.8 fL (9.2-13.0); PLATELET COUNT 197 10/3/uL (150-400); RBC DISTRIBUTION WIDTH 17.5 % (12.0-16.0); RED CELL COUNT 4.23 10/6/uL (4.7-6.1); WHITE BLOOD CELLS 12.7 10/3/uL (4.5-10.5)
[2017-03-17 03:48] LABS: MANUAL DIFF YES %
[2017-03-17 03:54] LABS: INTERNATIONAL NORMAL RATI 3.5 UNITS (-); PROTIME (NOT ORD) 35.2 SEC (12.0-14.5)
[2017-03-17 04:00] LABS: CALCIUM, SERUM 8.5 MG/DL (8.5-10.4); CHLORIDE, SERUM 94 MMOL/L (96-112); CO2 (CARBON DIOXIDE) 32 MMOL/L (24-34); GFR AFRICAN AMERICAN 35 ML/MIN (>=60); GFR NON AFRICAN AMERICAN 31 ML/MIN (>=60); PHOSPHORUS, SERUM 4.3 MG/DL (2.5-4.5); POTASSIUM, SERUM 4.1 MMOL/L (3.5-5.3); SODIUM, SERUM 130 MMOL/L (135-148)
[2017-03-17 04:04] LABS: BUN (BLOOD UREA NITROGEN) 73 MG/DL (6-23); GLUCOSE, SERUM 186 MG/DL (60-99)
[2017-03-17 04:07] LABS: ANISOCYTOSIS 1+ (5-10/OIF) (0-5/OIF); LYMPHOCYTES 6 %; LYMPHOCYTES ABSOLUTE (CALC) 0.76 10/3/uL (0.67-4.30); MONOCYTES 10 %; MONOCYTES ABSOLUTE (CALC) 1.27 10/3/uL (0.21-1.20); NEUTROPHILS ABSOLUTE (CALC) 10.67 10/3/uL (2.02-8.40); PLATELET ESTIMATE ADQ (ADEQUATE); SEGMENTED NEUTROPHIL (0) 84 %; TOTAL NUCLEATED CELLS 100
[2017-03-17 18:32] LABS: ASCORBIC ACID (UR NOT ORDER) NEG (NEG); BILIRUBIN, URINE NEGATIVE (NEG); KETONE, URINE NEGATIVE (NEG); LEUKOCYTE ESTERASE(NOT OR LARGE (NEG)
[2017-03-17 18:33] LABS: WBC (NOT ORDERED) (RFLEX) > 182 (0-5)
[2017-03-17 20:31] LABS: CREATININE, URINE 92.3 MG/DL
[2017-03-18 06:02] LABS: INTERNATIONAL NORMAL RATI 2.8 UNITS (-)
[2017-03-18 06:04] LABS: PROTIME (NOT ORD) 29.6 SEC (12.0-14.5)
[2017-03-19 05:47] LABS: HEMATOCRIT 33.5 % (40.0-51.0); HEMOGLOBIN 10.6 g/dL (13.6-17.8); MANUAL DIFF YES %; MEAN CORPUS HGB CONC 31.6 g/dL (32.0-36.0); MEAN CORPUSCULAR HEMOGLOB 26.9 pg (26.0-34.0); MEAN PLATELET VOLUME 11.5 fL (9.2-13.0); PLATELET COUNT 169 10/3/uL (150-400); RBC DISTRIBUTION WIDTH 17.4 % (12.0-16.0); RED CELL COUNT 3.94 10/6/uL (4.7-6.1); WHITE BLOOD CELLS 9.3 10/3/uL (4.5-10.5)
[2017-03-19 05:52] LABS: INTERNATIONAL NORMAL RATI 2.3 UNITS (-)
[2017-03-19 05:58] LABS: PROTIME (NOT ORD) 24.9 SEC (12.0-14.5)
[2017-03-19 06:32] LABS: LYMPHOCYTES 6 %; LYMPHOCYTES ABSOLUTE (CALC) 0.56 10/3/uL (0.67-4.30); MONOCYTES 1 %; MONOCYTES ABSOLUTE (CALC) 0.09 10/3/uL (0.21-1.20); NEUTROPHILS ABSOLUTE (CALC) 8.65 10/3/uL (2.02-8.40); SEGMENTED NEUTROPHIL (0) 93 %; TOTAL NUCLEATED CELLS 100
[2017-03-19 06:33] LABS: ANISOCYTOSIS 1+ (5-10/OIF) (0-5/OIF); PLATELET ESTIMATE ADQ (ADEQUATE); SCHISTOCYTES FEW (3-10/OIF)
[2017-03-19 06:40] LABS: BUN (BLOOD UREA NITROGEN) 72 MG/DL (6-23); CALCIUM, SERUM 8.8 MG/DL (8.5-10.4); CHLORIDE, SERUM 94 MMOL/L (96-112); CO2 (CARBON DIOXIDE) 36 MMOL/L (24-34)
[2017-03-19 06:42] LABS: ALBUMIN 3.8 G/DL (3.5-5.0); CREATININE 1.55 MG/DL (0.70-1.30); GFR AFRICAN AMERICAN 54 ML/MIN (>=60); GFR NON AFRICAN AMERICAN 47 ML/MIN (>=60); GLUCOSE, SERUM 108 MG/DL (60-99); PHOSPHORUS, SERUM 2.9 MG/DL (2.5-4.5); SODIUM, SERUM 137 MMOL/L (135-148)
[2017-03-20 06:18] LABS: INTERNATIONAL NORMAL RATI 2.3 UNITS (-); PROTIME (NOT ORD) 24.8 SEC (12.0-14.5)
[2017-03-20 06:27] LABS: ALBUMIN 3.7 G/DL (3.5-5.0); BUN (BLOOD UREA NITROGEN) 66 MG/DL (6-23); CHLORIDE, SERUM 93 MMOL/L (96-112); CO2 (CARBON DIOXIDE) 34 MMOL/L (24-34); CREATININE 1.32 MG/DL (0.70-1.30); GFR AFRICAN AMERICAN 66 ML/MIN (>=60); GFR NON AFRICAN AMERICAN 57 ML/MIN (>=60); GLUCOSE, SERUM 67 MG/DL (60-99); SODIUM, SERUM 134 MMOL/L (135-148)
[2017-03-21 05:27] LABS: INTERNATIONAL NORMAL RATI 2.1 UNITS (-); PROTIME (NOT ORD) 23.7 SEC (12.0-14.5)
[2017-03-22 05:39] LABS: INTERNATIONAL NORMAL RATI 2.1 UNITS (-)
[2017-03-22 05:42] LABS: CALCIUM, SERUM 8.9 MG/DL (8.5-10.4); CHLORIDE, SERUM 92 MMOL/L (96-112); CO2 (CARBON DIOXIDE) 37 MMOL/L (24-34); GFR AFRICAN AMERICAN 74 ML/MIN (>=60); GFR NON AFRICAN AMERICAN 64 ML/MIN (>=60); POTASSIUM, SERUM 3.5 MMOL/L (3.5-5.3); SODIUM, SERUM 134 MMOL/L (135-148)
[2017-03-22 05:44] LABS: BUN (BLOOD UREA NITROGEN) 50 MG/DL (6-23); GLUCOSE, SERUM 140 MG/DL (60-99)
[2017-03-23 07:17] LABS: INTERNATIONAL NORMAL RATI 2.1 UNITS (-); PROTIME (NOT ORD) 23.3 SEC (12.0-14.5)
== END 2017-03-23 17:20 | DRG 291 ==
LOC: ER 10:49 → CCU 15:11 → MIC 15:44 → 6NO 03-16 10:31
PROVIDERS: Emergency Medicine; Internal Medicine; Internal Medicine Cardiovascular Disease
PROC: 5A09357 Assistance with Respiratory Ventilation, Less than 24 Consecutive Hours, Continuous Positive Airway Pressure (ICD-10-PCS; principal; 2017-03-16)
DX: I13.0 Hypertensive heart and chronic kidney disease with heart failure and stage 1 through stage 4 chronic kidney disease, or unspecified chronic kidney disease (principal); J96.01 Acute respiratory failure with hypoxia; N17.9 Acute kidney failure, unspecified; Z68.42 Body mass index [BMI] 45.0-49.9, adult; E11.22 Type 2 diabetes mellitus with diabetic chronic kidney disease; R18.8 Other ascites; I50.23 Acute on chronic systolic (congestive) heart failure; J96.22 Acute and chronic respiratory failure with hypercapnia; J96.21 Acute and chronic respiratory failure with hypoxia; E66.2 Morbid (severe) obesity with alveolar hypoventilation; N39.0 Urinary tract infection, site not specified; I42.8 Other cardiomyopathies; I48.0 Paroxysmal atrial fibrillation; F32.9 Major depressive disorder, single episode, unspecified; I12.9 Hypertensive chronic kidney disease with stage 1 through stage 4 chronic kidney disease, or unspecified chronic kidney disease; N18.2 Chronic kidney disease, stage 2 (mild); K59.00 Constipation, unspecified; F03.90 Unspecified dementia, unspecified severity, without behavioral disturbance, psychotic disturbance, mood disturbance, and anxiety; M19.90 Unspecified osteoarthritis, unspecified site; G89.4 Chronic pain syndrome; I34.0 Nonrheumatic mitral (valve) insufficiency; B96.20 Unspecified Escherichia coli [E. coli] as the cause of diseases classified elsewhere; R62.7 Adult failure to thrive; M54.9 Dorsalgia, unspecified; Z86.718 Personal history of other venous thrombosis and embolism; Z82.49 Family history of ischemic heart disease and other diseases of the circulatory system; Z83.3 Family history of diabetes mellitus; Z95.810 Presence of automatic (implantable) cardiac defibrillator; Z79.4 Long term (current) use of insulin
CPT/HCPCS: 36600; 71010; 74000; 76775; 80048; 80053; 80069; 81001; 82533; 82570; 82805; 82962; 83605; 83735; 83880; 84100; 84132; 84145; 84156; 84484; 85025; 85610; 85730; 87070; 87077; 87086; 87186; 87205; 87641; 89190; 93005; 94640; 94660; 96374; 96375; 97162-GP; 97530-GP; 99291; A9270-GY; C8929; C9113; G8978-CK-GP; G8979-CJ-GP; J1200; J2405; J2930; P9047; Q9957